=== PATIENT | female | born 1955 | race Caucasian/White ===

== ENCOUNTER 2020-02-25 05:52 | Day surgery (SDC) | payer OTHER ==
[~2020-02-25] VITALS: Ht 167.6 cm; Wt 96.3 kg
[~2020-02-25 05:52] MED LIST: AMLO10 PO; AMLO5 PO; ASPI325 PO; Aspir 8181 MG PO; B Complete1 EACH PO; B-12500 MCG PO; CLOP75 PO; COQ1050 MG PO; Diovan Hct 1601 EACH PO; ERGO400 PO; EZET10 PO; Estroven Regu400 MCG PO; HYDACE5325 PO; LIVALO4 MG PO; LOSA50 PO; METO25ER PO; MULVITMINA PO; NEOPOLHCSU RIGHTEAR; NITR.4SL SL; Vitamin D2000 UNIT PO
--- NOTE | 2020-02-25 07:45 | NUR ---
PT BACK TO RECOVERY ROOM VIA [facility] POST PROCEDURE. EKG DONE PER ORDERS PT HAD EPISODE OF CHEST PAIN FOLLOWING PROCEDURE. AIR BRUSH OPERATOR HAS GIVEN NITRO SL PER ORDERS, PT NOW DENIES ANY CHEST PAIN. NORMAL SINUS RHYTHM ON THE EKG. PT TO BE TRANSFERED PER DR MARVIN FOR MULTIPLE VESSEL CAD.
--- NOTE | 2020-02-25 09:32 | NUR ---
PER DR MARVIN, DR SUN [facility] ACCEPTED PT FOR TRANSFER. COPIES OF PT FACE SHEET AND NEGATIVE COVID TEST RESULTS FAXED TO [employer] OPERATOR AT [facility].
--- NOTE | 2020-02-25 09:45 | NUR ---
ATTEMPTED TO TAKE 2-3 CC AIR OUT OF TR BAND, IMMEDIATE PULSATILE BLEEDING NOTED. 3CC AIR PUT BACK INTO BAND, CONTINUES TO BLEED. ADDITIONAL 2CC AIR PUT INTO BAND TO MAINTAIN HEMOSTASIS. DAUGHTER AT BEDSIDE, CALL LIGHT IN REACH.
--- NOTE | 2020-02-25 11:09 | NUR ---
TR BAND HAS BEEN FULLY DEFLATED. NO BLEEDING OR SWELLING NOTED. WILL CONTINUE TO WATCH FOR BLEEDING. HEPARIN DRIP PER PHAMARCY WILL BE STARTED ONE HOUR POST TR BAND BEING DEFLATED. PT DENIES DISCOMFORT. DAUGHTER REMAINS AT BEDSIDE. VSS, CALL LIGHT IN REACH.
--- NOTE | 2020-02-25 12:05 | NUR ---
PT OUT TO AMBULANCE VIA [facility]UR[facility] BY [facility]. DENIES CHEST PAIN OR DISCOMFORT AT TIME OF TRANSFER. REPORT HAS BEEN CALLED TO COURTNEY RAMIREZ, WHO WILL BE TAKING CARE OF PATIENT UPON ARRIVAL. VSS, HEPARIN DRIP CONTINUES TO INFUSE DURING TRANSPORT.
== END 2020-02-25 12:00 | disposition short-term general hospital (02) ==
LOC: MHTC 05:52
PROC: 4A023N7 Measurement of Cardiac Sampling and Pressure, Left Heart, Percutaneous Approach (ICD-10-PCS; principal; 2020-02-25)
PROC: B201YZZ Plain Radiography of Multiple Coronary Arteries using Other Contrast (ICD-10-PCS; principal; 2020-02-25)
DX: I25.119 Atherosclerotic heart disease of native coronary artery with unspecified angina pectoris (principal); E11.9 Type 2 diabetes mellitus without complications; I11.0 Hypertensive heart disease with heart failure; I50.9 Heart failure, unspecified; E78.5 Hyperlipidemia, unspecified; I08.1 Rheumatic disorders of both mitral and tricuspid valves; M19.90 Unspecified osteoarthritis, unspecified site; I65.23 Occlusion and stenosis of bilateral carotid arteries; Z87.891 Personal history of nicotine dependence; Z88.8 Allergy status to other drugs, medicaments and biological substances; Z79.899 Other long term (current) drug therapy; Z79.82 Long term (current) use of aspirin
CPT/HCPCS: 76937; 93005; 93010; 93458; 99152; C1769; C1894; J1644; J2250; J3010; J7030; J7050; Q9967

== ENCOUNTER → 2020-03-25 | Outpatient (CLI) | payer OTHER ==
[~2020-03-25] MED LIST changes: +EZETIMIBE10 M3 PO; +KEFLEX500 MG PO; +METFORMIN HCL500 M2 PO; +OXYC5; +PLAVIX75 MG PO; +XANAX0.25 MG PO
== END | disposition home or self-care (01) ==
LOC: LAB SHORT 16:00 → LAB 16:00
DX: R31.9 Hematuria, unspecified (principal)
CPT/HCPCS: 87086

== ENCOUNTER 2020-03-26 04:54 | Emergency (ER) | payer OTHER ==
[~2020-03-26] VITALS: Ht 170.2 cm; Wt 89.8 kg
[~2020-03-26 04:54] MED LIST changes: -EZETIMIBE10 M3 PO; -KEFLEX500 MG PO; -METFORMIN HCL500 M2 PO; -OXYC5; -PLAVIX75 MG PO; -XANAX0.25 MG PO
[2020-03-26] MEDS ORDERED: KEFLEX500 MG PO (05:10)
[2020-03-26] MEDS ORDERED: OXYC5 (05:11)
[2020-03-26] MEDS ORDERED: EZETIMIBE10 M3 PO (05:11)
[2020-03-26] MEDS ORDERED: METFORMIN HCL500 M2 PO (05:11)
[2020-03-26] MEDS ORDERED: XANAX0.25 MG PO (05:12)
[2020-03-26] MEDS ORDERED: PLAVIX75 MG PO (05:13)
[2020-03-26 06:01] LABS: BASOPHILS ABSOLUTE AUTO 0.09 K/mm3 (0.00-0.23); BASOPHILS PERCENT AUTO 1 % (0-2); EOSINOPHILS ABSOLUTE AUTO 0.02 K/mm3 (0.00-0.68); EOSINOPHILS PERCENT AUTO 0 % (0-6); Hematocrit 34.5 % (33.0-51.0); IMMATURE GRAN ABSOLUTE AUTO 0.07 K/mm3 (0.00-0.10); IMMATURE GRAN PERCENT AUTO 0 % (0-1); LYMPHOCYTES ABSOLUTE AUTO 1.44 K/mm3 (0.84-5.20); LYMPHOCYTES PERCENT AUTO 9 % (21-46); MONOCYTES PERCENT AUTO 3 % (4-13); Mean Corpuscular HGB 32.2 pg (26.0-34.0); Mean Corpuscular HGB Conc 31.9 g/dL (31.5-36.5); Mean Corpuscular Volume 101 fL (80-100); NEUTROPHILS PERCENT AUTO 87 % (41-73); RDW Coefficient Variation 14.4 % (11.7-14.2); RDW Standard Deviation 52.8 fL (35.1-46.3); Red Blood Cell Count 3.42 M/mm3 (3.80-5.20); White Blood Cell Count 15.62 K/mm3 (4.00-11.30)
[2020-03-26 06:08] LABS: Prothrombin Time Results 10.7 Sec (9.7-11.5)
[2020-03-26 06:10] LABS: Mean Platelet Volume 9.1 fL (9.1-12.4); Platelet Count 518 K/mm3 (150-400)
[2020-03-26 06:17] LABS: Alanine Aminotransfer (ALT/SGP 32 U/L (12-78); Albumin/Globulin Ratio 0.9 (0.8-1.8); Alk Phos 108 U/L (50-136); Anion Gap 9 mmol/L (6-16); Aspartate Aminotrans (AST/SGOT 15 U/L (12-37); Bilirubin, Total 0.4 mg/dL (0.1-1.0); Blood Urea Nitrogen 20 mg/dL (8-24); Bun/Creatinine Ratio 22.2 (12.0-20.0); CO2, Blood 20 mmol/L (21-32); Calcium, Blood 9.9 mg/dL (8.5-10.1); Chloride, Blood 110 mmol/L (98-108); Globulin, Blood 4.6 g/dL (2.2-4.0); Glomerular Filtration Rate >60 (60-); Glucose, Blood 164 mg/dL (70-99); Potassium, Blood 4.1 mmol/L (3.5-5.5); Sodium, Blood 139 mmol/L (136-145); Total Protein, Blood 8.6 g/dL (6.4-8.2)
[2020-03-26 06:32] LABS: Source, Urine Clean Catch
[2020-03-26 06:39] LABS: Appearance, Urine Turbid (Clear); Bilirubin, Urine Neg (Neg); Blood, Urine 5+ (Neg); Color, Urine Brown (P-Yellow); Glucose Qualitative, Urine Neg (Neg); Ketones, Urine 3+ (Neg); Leukocyte Esterase, Urine 2+ (Neg); Nitrite, Urine Neg (Neg); Protein, Urine 3+ (Neg); Specific Gravity, Urine 1.025 (1.003-1.022); Urobilinogen, Urine NORM (Normal); pH, Urine 6.5 (5.0-8.0)
[2020-03-26 06:45] LABS: Bacteria Many /hpf; Red Blood Cells, Urine TNTC /hpf (0-2); Squamous Epithelial Cells Not Seen /hpf (Few); Yeast/Fungi Urine Many /hpf
== END 2020-03-26 08:20 | disposition short-term general hospital (02) ==
LOC: ER 04:54
PROVIDERS: Emergency Medicine
DX: N13.6 Pyonephrosis (principal); Z20.828 Contact with and (suspected) exposure to other viral communicable diseases
CPT/HCPCS: 36415; 74176; 80053; 81001; 83605; 85025; 85610; 87086; 93005; 93010; 96374; 96375; 99285-25; J0696; J0780; J1200; J2270; J2405; J3010; U0003

== ENCOUNTER 2023-03-21 11:40 | Inpatient (IN) | payer OTHER ==
[~2023-03-21] VITALS: Ht 170.2 cm; Wt 92.2 kg
[~2023-03-21 11:40] MED LIST changes: +EZETIMIBE10 M3 PO; +KEFLEX500 MG PO; +METFORMIN HCL500 M2 PO; +OXYC5; +PLAVIX75 MG PO; +XANAX0.25 MG PO
[2023-03-21 12:16] LABS: Hematocrit 38.6 % (33.0-51.0); Hemoglobin 13.1 g/dL (11.5-16.0); Mean Corpuscular HGB 32.5 pg (26.0-34.0); Mean Corpuscular HGB Conc 33.9 g/dL (31.5-36.5); Mean Corpuscular Volume 96 fL (80-100); Mean Platelet Volume 9.3 fL (9.1-12.4); Platelet Count 348 K/mm3 (150-400); RDW Coefficient Variation 12.3 % (11.7-14.2); RDW Standard Deviation 42.7 fL (35.1-46.3); Red Blood Cell Count 4.03 M/mm3 (3.80-5.20)
[2023-03-21 12:35] LABS: Source, Urine Clean Catch
[2023-03-21 12:35] LABS: BAND PERCENT MAN 9 % (0-8); BASOPHILS PERCENT MAN 0 % (0-2); EOSINOPHILS PERCENT MAN 0 % (0-6); LYMPHOCYTES ABSOLUTE MAN 0.75 K/mm3 (0.84-5.20); LYMPHOCYTES PERCENT MAN 3 % (21-46); MONOCYTES ABSOLUTE MAN 0.75 K/mm3 (0.16-1.47); MONOCYTES PERCENT MAN 3 % (4-13); NEUTROPHILS ABSOLUTE MAN 23.68 K/mm3 (1.96-9.15); SEG NEUTROPHILS PERCENT MAN 85 % (41-73); TOTAL CELLS COUNTED 100
[2023-03-21 12:39] LABS: Albumin, Blood 4.1 g/dL (3.4-5.0); Bilirubin, Total 0.7 mg/dL (0.1-1.0); Calcium, Blood 9.8 mg/dL (8.5-10.1); Creatinine, Blood 1.26 mg/dL (0.40-1.00); Globulin, Blood 4.2 g/dL (2.2-4.0); Total Protein, Blood 8.3 g/dL (6.4-8.2)
[2023-03-21 12:42] LABS: Appearance, Urine Cloudy (Clear); Bilirubin, Urine Neg (Neg); Blood, Urine 5+ (Neg); Color, Urine Yellow (P-Yellow); Glucose Qualitative, Urine Neg (Neg); Ketones, Urine 2+ (Neg); Leukocyte Esterase, Urine 3+ (Neg); Nitrite, Urine Neg (Neg); Protein, Urine 2+ (Neg); Specific Gravity, Urine 1.015 (1.003-1.022); Urobilinogen, Urine NORM (Normal)
[2023-03-21 12:51] LABS: Red Blood Cells, Urine 25-50 /hpf (0-2); White Blood Cells, Urine 50-100 /hpf (0-5)
[2023-03-21 12:52] LABS: Bacteria Many /hpf; Mucus Light (0-Heavy); Squamous Epithelial Cells Rare /hpf (Few)
[2023-03-21 12:54] LABS: Renal Epithelial Rare /hpf (0-Rare)
[2023-03-21 21:41] LABS: Base Excess Venous -6.7 mmol/L; PCO2 Venous 31.6 mmHg (38-42); pH Blood Venous 7.38 (7.34-7.37)
[2023-03-21 22:28] VITALS: BP 141/63
[2023-03-21] MEDS ORDERED: NORVASC10 MG PO (22:36)
[2023-03-21] MEDS ORDERED: LOSA25 PO (22:37)
[2023-03-21 23:29] VITALS: BP 147/70
[2023-03-22 03:49] VITALS: BP 128/66
--- NOTE | 2023-03-22 04:06 | NUR ---
SHIFT SUMMARY PT IS A NEW ADMIT THIS SHIFT FOR NEPHROLITHIASIS, HYDRONEPHROSIS, AND A UTI. SHE IS SBA IN THE ROOM, AND A&OX4. SHE HAS LR RUNNING AT 150ML/HR AND HAS RECEIVED 1 L BOLUS IN PCU. SHE IS HAVING MILD BILATERAL FLANK PAIN 2-3/10 WHEN RESTING BUT IT GOES UP TO 5/10 WITH ACTIVITY. THE PT HAS REFUSED PAIN MEDICATIONS SO FAR, BUT SHE HAS RECEIVED ZOFRAN AND REGLAN DUE TO HER NAUSEA. SHE WAS GOING TO [place] TO [facility] BUT THE SECURITY ATTENDANT THERE BELIEVED SHE WOULD PASS THE STONE TONIGHT. DR. HILL HAS BEEN CONSULTED. WE HAVE BEEN FILTERING HER URINE AND HAVE COLLECTED VERY SMALL FRAGMENTS OF STONES. THEY ARE IN A SAMPLE CONTAINER FOR THE DR Bland TO SEE IN THE AM. THE PT WAS SATURATING 85-91% ON ROOM AIR SO I PLACED HER ON 2L NC. SHE GETS SOB WITH ACTIVITY. THE PT DID STATE THAT WITHIN THE LAST FEW WEEKS SHE HAD A NEW DIAGNOSIS OF LLL PARALYSIS. I TALKED TO MY CHARGE NURSE AND WILL PASS OFF THAT THE PT MAY NEED A HOME O2 EVALUATION. THE PT IS VERY PLEASANT AND CALLS APPROPRIATELY. FIRE IGNITION RISK AND SAFETY HAS BEEN ASSESSED. EDUCATION PROVIDED. SEE NOTES FOR ANY UPDATES.
[2023-03-22 04:16] LABS: BASOPHILS PERCENT AUTO 0 % (0-2); EOSINOPHILS PERCENT AUTO 0 % (0-6); Hematocrit 30.9 % (33.0-51.0); Hemoglobin 10.5 g/dL (11.5-16.0); IMMATURE GRAN ABSOLUTE AUTO 0.86 K/mm3 (0.00-0.10); IMMATURE GRAN PERCENT AUTO 2 % (0-1); LYMPHOCYTES ABSOLUTE AUTO 1.48 K/mm3 (0.84-5.20); LYMPHOCYTES PERCENT AUTO 4 % (21-46); MONOCYTES ABSOLUTE AUTO 1.72 K/mm3 (0.16-1.47); MONOCYTES PERCENT AUTO 5 % (4-13); Mean Corpuscular HGB 33.2 pg (26.0-34.0); Mean Corpuscular Volume 98 fL (80-100); Mean Platelet Volume 9.4 fL (9.1-12.4); NEUTROPHILS ABSOLUTE AUTO 31.89 K/mm3 (1.96-9.15); NEUTROPHILS PERCENT AUTO 88 % (41-73); Platelet Count 274 K/mm3 (150-400); RDW Coefficient Variation 13.1 % (11.7-14.2); RDW Standard Deviation 46.5 fL (35.1-46.3); Red Blood Cell Count 3.16 M/mm3 (3.80-5.20); White Blood Cell Count 36.05 K/mm3 (4.00-11.30)
--- NOTE | 2023-03-22 04:36 | NUR ---
UPDATE ASSUMING CARE OF PT AT THIS TIME
[2023-03-22 04:47] LABS: Albumin/Globulin Ratio 0.8 (0.8-1.8); Bilirubin, Total 0.4 mg/dL (0.1-1.0); Calcium, Blood 9.2 mg/dL (8.5-10.1); Creatinine, Blood 1.3 mg/dL (0.40-1.00); Globulin, Blood 3.6 g/dL (2.2-4.0); Magnesium, Blood 1.7 mg/dL (1.6-2.4); Potassium, Blood 4.2 mmol/L (3.5-5.5); Total Protein, Blood 6.6 g/dL (6.4-8.2)
--- NOTE | 2023-03-22 06:31 | NUR ---
SHIFT SUMMARY/ASSUMPTION OF CARE PT ALERT AND ORIENTED X 4. HR STABLE. BP STABLE. OXYGEN SATURATION MAINTAINED ABOVE 92% ON 3 L VIA NC. NO CP OR PRESSURE REPORTED. PT MEDICATED FOR NAUSEA AND PAIN, SEE EMAR. URINE STRAINED FOR STONES, SPECIMEN CUP AT BEDSIDE FOR STONES. PT CURRENLTY SLEEPING. CALL LIGHT WITHIN REACH.
--- NOTE | 2023-03-22 06:44 | NUR ---
THIS RN AGREES WITH PREVIOUS PRINT JOURNALIST
[2023-03-22 07:21] VITALS: BP 145/73
--- NOTE | 2023-03-22 07:50 | NUR ---
UPDATE PT REQUESTING TO HOLD OFF ON FOOD AND PO PILLS AT THIS TIME D/T NAUSEA. PRIMARY RN NOTIFIED.
[2023-03-22 11:12] VITALS: BP 135/71
[2023-03-22 14:44] VITALS: BP 139/66
--- NOTE | 2023-03-22 16:36 | NUR ---
SHIFT SUMMARY: PT ALERT AND ORIENTED X4, ABLE TO FOLLOW COMMANDS AND MAKE NEEDS KNOWN. STRENGTH EQUAL BILATERALLY. BP STABLE, HR SR 80'S, AFEBRILE, SPO2 >96% ON 2L NC, RA AT BASELINE. PT WITH MUTIPLE VOIDS THROUGHOUT THE DAY, NO KIDNEY STONE OBSERVED IN STRAINER. PT WITH 8/10 R. FLANK PAIN THROUGHOUT THE DAY. NEW PAIN MEDICATION ORDERS RECEIVED, SEE EMAR. CBG 125-170 THIS SHIFT, INSULIN HELD DUE TO POOR PO INTAKE. PT IND TO AND FORM BSC. DAUGHTERS AT BEDSIDE THROUGHOUT THE DAY, UPDATED ON PT PLAN OF CARE THROUGHOUT THE DAY WITH PT PERMISSION. PT MEDICATED FOR PAIN APPROX 20 MIN AGO, RESPONDING WELL. NS GTT AT 125ML/HR IN R. AC. FAMILY AT BEDSIDE. BED IN LOW, CALL LIGHT IN REACH, WILL REPORT TO ONCOMING RN.
[2023-03-22 20:11] VITALS: BP 156/71
[2023-03-22 23:22] VITALS: BP 142/71
[2023-03-23 04:29] VITALS: BP 152/78
--- NOTE | 2023-03-23 05:11 | NUR ---
SHIFT SUMMARY PT IS A&OX4, CALLS APPROPRAITELY, SR60'S-90'S ON TELE, AND HAS NO ACUTE EVENTS. PT DID HAVE SOME NAUSEA AND PAIN ONCE THIS SHIFT AND WAS GIVEN DUILADID 1MG AND HER COMPAZINE. SHE HAS RESTED MOST OF THE NIGHT. HER OXYGEN NEEDS HAVE GONE UP TO 4L NC FROM 2L NC. I HAVE TALKED TO THE PT ABOUT GETTING EVALUATED FOR HOME O2. I WILL PASS THIS ON TO THE DAY SHIFT TO TO DISCUSS WITH THE HOSP TEAM. HER URINE HAS BEEN FILTERED ALL SHIFT AND SHE HAS NOT PASSED ANY STONES. FIRE IGNITION RISK HAS BEEN ASSESSED.
[2023-03-23 07:30] VITALS: BP 146/87
--- NOTE | 2023-03-23 07:30 | NUR ---
INITIAL ASSESSMENT: Patient is resting comfortably with her eyes closed, easily awakens with verbal stimuli. She is alert and oriented x4. She reports 3/10 lower back pain that has been present since admission, patient does not want any medications for pain at this time. HRR, she is SR with PACs in the 70s-80s. LS dim in the lower lobes bilat, and clear otherwise. Patient states she has been having some shortness of breath that has been worked up, she recently had a chest CT at the beginning of this month. Some chronic atelectasis in her left lower lobe, pt is on 4l of oxygen and is not on any at home, saturations are low 90s. Patient has has dry NPC. BT+, pt states she has been having chronic nausea and hasn't had much of an appetite. She has been using the C IND and notifying staff when she voids, we are straining all urine-no stones noted at this time. PPP. VSS. Patient denies other needs at this time. Call light in reach.
[2023-03-23] MEDS ORDERED: LOSA50 PO (09:09)
[2023-03-23 09:25] LABS: Hematocrit 29.1 % (33.0-51.0); Hemoglobin 9.5 g/dL (11.5-16.0); Mean Corpuscular HGB 32.5 pg (26.0-34.0); Mean Corpuscular HGB Conc 32.6 g/dL (31.5-36.5); Mean Corpuscular Volume 100 fL (80-100); Mean Platelet Volume 9.8 fL (9.1-12.4); Platelet Count 239 K/mm3 (150-400); RDW Coefficient Variation 13.1 % (11.7-14.2); RDW Standard Deviation 48.1 fL (35.1-46.3); Red Blood Cell Count 2.92 M/mm3 (3.80-5.20); White Blood Cell Count 25.76 K/mm3 (4.00-11.30)
[2023-03-23 09:48] LABS: Albumin, Blood 2.4 g/dL (3.4-5.0); Anion Gap 5 mmol/L (6-16); Blood Urea Nitrogen 19 mg/dL (8-24); Bun/Creatinine Ratio 21.8 (12.0-20.0); CO2, Blood 24 mmol/L (21-32); Calcium, Blood 8.9 mg/dL (8.5-10.1); Chloride, Blood 109 mmol/L (98-108); Creatinine, Blood 0.87 mg/dL (0.40-1.00); Glomerular Filtration Rate 72 (60-); Glucose, Blood 182 mg/dL (70-99); Phosphorus, Blood 2.2 mg/dL (2.5-4.9); Potassium, Blood 4.2 mmol/L (3.5-5.5); Sodium, Blood 138 mmol/L (136-145)
[2023-03-23 09:52] LABS: BAND PERCENT MAN 8 % (0-8); BASOPHILS PERCENT MAN 0 % (0-2); EOSINOPHILS PERCENT MAN 0 % (0-6); LYMPHOCYTES ABSOLUTE MAN 0.51 K/mm3 (0.84-5.20); LYMPHOCYTES PERCENT MAN 2 % (21-46); MONOCYTES ABSOLUTE MAN 0.25 K/mm3 (0.16-1.47); MONOCYTES PERCENT MAN 1 % (4-13); NEUTROPHILS ABSOLUTE MAN 24.98 K/mm3 (1.96-9.15); SEG NEUTROPHILS PERCENT MAN 89 % (41-73); TOTAL CELLS COUNTED 100
--- NOTE | 2023-03-23 12:00 | NUR ---
Update: Patient has been resting comfortably. Blood pressure is a little high, she is not on all of her home medications-MD notified, see new orders. Dr. Guadalupe mentioned that if the staff doesn't see the stone pass over night we may do repeat imaging to see if it is still present on CT. Patient denies other needs at this time. Call light in reach. Daughters at bedside.
[2023-03-23 12:15] VITALS: BP 164/83
--- NOTE | 2023-03-23 16:12 | NUR ---
Update: Patient continues to rest, she has been medicated for pain and nausea twice. Still not interested in a lot of PO intake. IVF changed to LR. AFter giving patients home dose of Amlodipine her blood pressure is improved from 160s mm hg down to 130s. New IV placed. Patient denies other needs at this time. Call light in reach.
--- NOTE | 2023-03-23 18:08 | NUR ---
SUMMARY: Patient has been alert and oriented T/O the shift. She has been C/O pain intermittently T/O the day, she was given Dilaudid twice. HRR, SR with PACs. She was hypertensive this afternoon, after restarting some of her home medications her blood pressure came down. LS DIM in the lower lobes more the left than the right, she has an IS at bedside and has been using it hourly. BT+, she has had poor PO intake T/O the shift, she was medicated with Compazine twice for nausea. She has been getting up to the bedside commode independently, we are straining urine-no stones noted yet. Plan for possible follow up ABD CT to see if she has passed the stones yet. No other acute changes this shift, will report to oncoming RN.
[2023-03-23 19:14] VITALS: BP 161/83
[2023-03-23 23:24] VITALS: BP 148/73
[2023-03-24 03:35] VITALS: BP 154/74
[2023-03-24 03:41] LABS: Hematocrit 31.8 % (33.0-51.0); Hemoglobin 10.6 g/dL (11.5-16.0); Mean Corpuscular HGB Conc 33.3 g/dL (31.5-36.5); Mean Corpuscular Volume 99 fL (80-100); Mean Platelet Volume 9.9 fL (9.1-12.4); Platelet Count 266 K/mm3 (150-400); RDW Standard Deviation 47.2 fL (35.1-46.3); Red Blood Cell Count 3.21 M/mm3 (3.80-5.20); White Blood Cell Count 24.92 K/mm3 (4.00-11.30)
[2023-03-24 04:04] LABS: Albumin, Blood 2.7 g/dL (3.4-5.0); Anion Gap 3 mmol/L (6-16); Blood Urea Nitrogen 13 mg/dL (8-24); Bun/Creatinine Ratio 16.1 (12.0-20.0); CO2, Blood 28 mmol/L (21-32); Calcium, Blood 9.2 mg/dL (8.5-10.1); Chloride, Blood 105 mmol/L (98-108); Creatinine, Blood 0.81 mg/dL (0.40-1.00); Glomerular Filtration Rate 79 (60-); Glucose, Blood 152 mg/dL (70-99); Phosphorus, Blood 2.3 mg/dL (2.5-4.9); Potassium, Blood 4.4 mmol/L (3.5-5.5); Sodium, Blood 136 mmol/L (136-145)
[2023-03-24 04:14] LABS: BAND PERCENT MAN 14 % (0-8); BASOPHILS PERCENT MAN 0 % (0-2); EOSINOPHILS ABSOLUTE MAN 0.24 K/mm3 (0.00-0.68); EOSINOPHILS PERCENT MAN 1 % (0-6); LYMPHOCYTES ABSOLUTE MAN 0.99 K/mm3 (0.84-5.20); LYMPHOCYTES PERCENT MAN 4 % (21-46); MONOCYTES ABSOLUTE MAN 0.99 K/mm3 (0.16-1.47); MONOCYTES PERCENT MAN 4 % (4-13); NEUTROPHILS ABSOLUTE MAN 22.67 K/mm3 (1.96-9.15); SEG NEUTROPHILS PERCENT MAN 77 % (41-73); TOTAL CELLS COUNTED 100
--- NOTE | 2023-03-24 04:49 | NUR ---
SHIFT SUMMARY PT IS A&OX4, HAS BEEN IND IN THE ROOM, AND STILL HAS NOT PASSED ANY KIDNEY STONES. THE PT DID DESATURATE TONIGHT AND IS NOW ON 8L NC TO MAINTAIN SP02 >90%. SHE STATES THAT SHE IS SICK OF FEELING MISERABLE. SHE HAS HAD TO BE MEDICATED A FEW TIMES FOR NAUSEA AND PAIN. NO ACUTE EVENTS OVER NIGHT. ON TELE SHE HAS BEEN SR 70'S-90'S. SEE NOTES FOR ANY UPDATES.
[2023-03-24 07:42] VITALS: BP 150/80
--- NOTE | 2023-03-24 07:45 | NUR ---
INITIAL ASSESSMENT: Patient is resting in bed supine, resting with her eyes closed, she easily awakens with verbali stimuli. She is oriented x4. She reports minimal pain she rates at a 3/10, she states the pain has been in her right flank. HRR, SR in the 70s. She has some increased edema to BUE and BLE. LS DIM in the bases with some crackles noted, she is now on 8L instead of the 4L she was on yesterday, saturations in the mid 90s. She continues to have a dry NPC. Patient has IS at bedside, encouraged to use Q1. We also discussed her movign around today and not staying in bed. BT+, pt states she hasn't had a BM for a couple of days, but she also is not taking in alot of PO. PPP. VSS. Dr. Guadalupe at bedside, see new orders.
[2023-03-24 12:08] VITALS: BP 168/84
--- NOTE | 2023-03-24 13:00 | NUR ---
UPDATE: Patients pain level is back up to 6/10, Fentanyl given, pt continues to have 6/10 pain in her right flank. Dr. Guadalupe notified-see new orders. Repeat ABD CT done.
[2023-03-24 15:19] VITALS: BP 145/78
--- NOTE | 2023-03-24 18:56 | NUR ---
Summary: Patient has been alert and oriented T/O the shift. She has been C/O right flank pain intermittently T/O the shift. Her pain medications have been transitioned to oral. HRR, SR 70s-80s. Increased edma, one time dose of lasix given. LS DIM with crackles in the bases. Initially the patient was on 8l of oxygen via NC, I was able to gradually decrease it down to 2L via NC. BT+, pt still has been having intermittent nausea and was medicated with Compazine a couple of times. Pt has had poor PO intake and has not had a BM in a couple of days. VSS T/O the shift. Repeat ABD CT, stones have been passed. No acute changes this shift. Will report to oncoming RN.
[2023-03-24 20:14] VITALS: BP 125/71
[2023-03-25 00:19] VITALS: BP 151/81
[2023-03-25 04:31] VITALS: BP 155/86
[2023-03-25 04:33] LABS: BASOPHILS ABSOLUTE AUTO 0.12 K/mm3 (0.00-0.23); BASOPHILS PERCENT AUTO 1 % (0-2); EOSINOPHILS ABSOLUTE AUTO 0.12 K/mm3 (0.00-0.68); EOSINOPHILS PERCENT AUTO 1 % (0-6); Hematocrit 31.6 % (33.0-51.0); Hemoglobin 11.3 g/dL (11.5-16.0); IMMATURE GRAN ABSOLUTE AUTO 0.64 K/mm3 (0.00-0.10); IMMATURE GRAN PERCENT AUTO 3 % (0-1); LYMPHOCYTES ABSOLUTE AUTO 2.57 K/mm3 (0.84-5.20); LYMPHOCYTES PERCENT AUTO 13 % (21-46); MONOCYTES ABSOLUTE AUTO 1.63 K/mm3 (0.16-1.47); MONOCYTES PERCENT AUTO 8 % (4-13); Mean Corpuscular HGB 33.6 pg (26.0-34.0); Mean Corpuscular HGB Conc 35.8 g/dL (31.5-36.5); NEUTROPHILS ABSOLUTE AUTO 14.36 K/mm3 (1.96-9.15); NEUTROPHILS PERCENT AUTO 74 % (41-73); NRBC ABSOLUTE 0.02 K/mm3 (0.00-0.02); NRBC Auto 0.1 /100 WBC (0.0-0.2); RDW Coefficient Variation 12.9 % (11.7-14.2); RDW Standard Deviation 44.2 fL (35.1-46.3); Red Blood Cell Count 3.36 M/mm3 (3.80-5.20); White Blood Cell Count 19.44 K/mm3 (4.00-11.30)
[2023-03-25 04:35] LABS: Mean Corpuscular Volume 94 fL (80-100); Mean Platelet Volume 10.8 fL (9.1-12.4); Platelet Count 336 K/mm3 (150-400)
[2023-03-25 04:45] LABS: BAND PERCENT MAN 9 % (0-8); BASOPHILS PERCENT MAN 0 % (0-2); EOSINOPHILS PERCENT MAN 0 % (0-6); LYMPHOCYTES % ATYPICAL MANUAL 1 % (0-0); LYMPHOCYTES PERCENT MAN 16 % (21-46); MONOCYTES ABSOLUTE MAN 1.74 K/mm3 (0.16-1.47); MONOCYTES PERCENT MAN 9 % (4-13); NEUTROPHILS ABSOLUTE MAN 14.38 K/mm3 (1.96-9.15); SEG NEUTROPHILS PERCENT MAN 65 % (41-73); TOTAL CELLS COUNTED 100
[2023-03-25 04:46] LABS: Albumin, Blood 2.7 g/dL (3.4-5.0); Anion Gap 5 mmol/L (6-16); Blood Urea Nitrogen 15 mg/dL (8-24); Bun/Creatinine Ratio 19.5 (12.0-20.0); CO2, Blood 29 mmol/L (21-32); Calcium, Blood 9.4 mg/dL (8.5-10.1); Chloride, Blood 101 mmol/L (98-108); Creatinine, Blood 0.77 mg/dL (0.40-1.00); Glomerular Filtration Rate 83 (60-); Glucose, Blood 157 mg/dL (70-99); Phosphorus, Blood 2.5 mg/dL (2.5-4.9); Potassium, Blood 3.8 mmol/L (3.5-5.5); Sodium, Blood 135 mmol/L (136-145)
--- NOTE | 2023-03-25 05:24 | NUR ---
SHIFT SUMMARY A/Ox4 AND COOPERATIVE WITH CARE. ANSWERS QUESTIONS APPROPRIATELY AND ABLE TO MAKE HER NEEDS KNOWN, BUT CAN BE ANXIOUS AT TIMES. NO ACUTE EVENTS OVER NIGHT. CARDIAC, REMAINS IN SR 80-90's WITH NO COMPLAINTS OF CP OR PRESSURE T/O THE NIGHT. SBP HAS BEEN STABLE RANGING 120 S-150's. RESPIRATORY, MAINTAINS SPO2 >90% ON 2L VIA NC. DENIES SOB AT REST UNLESS FEELING ANXIOUS. TACYPNEA NOTED WITH MODERATE EXERTION, BUT RECOVERS WELL. GI/, ABLE TO INDEPENDENTLY AMBULATE TO [facility] TO VOID YELLOW URINE. CONTINUES TO REPORT SOME RIGHT FLANK SORENESS, BUT PAIN HAS BEEN WELL CONTROLLED WITH PRN PAIN MEDICATIONS. DENIES N/V T/O THE NIGHT. CONTINUES TO HAVE REDUCED PO INTAKE, BUT PT DRANK SEVERAL ENSURES DURING THE NIGHT. PT RECEIVED SHOWER THIS AM PER HER REQUEST. ENCOURAGED INCENTIVE SPIROMETER USE WHENEVER AWAKE. ASSESSED PT FOR RISKS OF ANY IGNITION SOURCES WELL BEHAVIORS FOR INCREASED RISKS OF FIRE DANGER. PT EDUCATED ON COMMON SOURCES OF IGNITION WELL NEED TO KEEP A SAFE ENVIRONMENT. PT VOICED UNDERSTANDING. NO NEW ORDERS AT THIS TIME, WILL REPORT TO ONCOMING RN. ALBA DWYER OF THIS NOTE.
[2023-03-25 07:28] VITALS: BP 171/79
--- NOTE | 2023-03-25 08:02 | NUR ---
AM NOTE ASSUMED CARE OF PATIENT AT [facility] 0700. PT ALERT, ORINETED X4. IND IN ROOM. PT REPORTS LOWER BACK PAIN, MEDICATED PER EMAR. SPO2 >90% ON 2L O2 VIA NC. TELE SINUS 70-80'S, BP ELEVATED, MEDICATED WITH SCHEDULE AMLODIPINE. ABD SOFT NONTENDER, NORMOACTIVE BT, REPORTING NAUSEA, MEDICATED WITH PRN. EDEMA NOTED TO BLE 1+, TRACE NOTED TO BUE. OTHER VSS. NO OTHER ACUTE CHANGES NOTED. WILL CONTINUE TO MONITOR. NEW ORDERS FOR NO TELE AND LIDO PATCH PRN DAILY.
[2023-03-25 15:17] VITALS: BP 173/72
[2023-03-25 16:40] VITALS: BP 157/83
--- NOTE | 2023-03-25 16:54 | NUR ---
ASSUMED CARE NOTE RECEIVED REPORT FROM MARLENE IN PCU. ASSUMED CARE OF PT. TOA TO ROOM FROM PCU AT 1630 VIA W/C BY GAYATRI. PT A&OX4, BP ELEVATED, IMPROVED FROM BP TAKEN IN PCU PRIOR TO ARRIVING ON THE FLOOR, NO HYDRALAZINE NEEDED, PT ASYMPTOMATIC, HX OF HTN. OTHERWISE VSS. PAIN MANAGED PRIOR TO ARRIVAL, BREAKTHROUGH PAIN EXPERIENCED SHORTLY AFTER ARRIVAL AND MEDICATED W/ FENTANYL PER EMAR. PT AMB INDEPENDENTLY W/ SBA. I AGREE W/ LAST ASSESSMENT.
--- NOTE | 2023-03-25 16:56 | NUR ---
Transfer note Pt continues to report nausea, medicated per emar. Continued to report back pain, medicdated per emar. Encouraged pt t/o shift to use i/s. Elevated bp note this afternoon, pt reports nausea and pain, medicated, had planned to recheck but pt transfered to new room. Report given to RN assuming care of patient. Pt transfered at approx 1630.
[2023-03-25 19:48] VITALS: BP 106/69
[2023-03-26] VITALS (11 sets, daily range): BP systolic 100–131; BP diastolic 59–80
--- NOTE | 2023-03-26 06:39 | NUR ---
SHIFT SUMMARY PT HAD PAIN REQUIRING FREQUENT PRN MEDICATIONS. PRN LIDOCAINE PATCH APPLIED TO LOWER RIGHT ABODMEN/SIDE. PT LATER REQUESTED SHE HAVE A LIDOCAINE PATCH FOR HER RIGHT SHOULDER. CALLED [employer] TO OBTAIN ORDER, ADDITIONAL PATCH APPLIED. PAIN WAS VERY BAD IN THE BEGINNING OF SHIFT. HAS IMPROVED MORE AFTER GIVING 2 NORCO TABS INSTEAD OF 1. PT ALSO RECEIVED TYLENOL FOR A TEMP. NO OTHER EVENTS OVER NIGHT.
[2023-03-26 06:50] LABS: Hematocrit 34.2 % (33.0-51.0); Hemoglobin 11.6 g/dL (11.5-16.0); Mean Corpuscular HGB 32.4 pg (26.0-34.0); Mean Corpuscular HGB Conc 33.9 g/dL (31.5-36.5); Mean Corpuscular Volume 96 fL (80-100); Mean Platelet Volume 9.7 fL (9.1-12.4); NRBC ABSOLUTE 0.02 K/mm3 (0.00-0.02); NRBC Auto 0.1 /100 WBC (0.0-0.2); Platelet Count 356 K/mm3 (150-400); RDW Coefficient Variation 12.9 % (11.7-14.2); RDW Standard Deviation 45.6 fL (35.1-46.3); Red Blood Cell Count 3.58 M/mm3 (3.80-5.20); White Blood Cell Count 14.15 K/mm3 (4.00-11.30)
[2023-03-26 07:15] LABS: BAND PERCENT MAN 29 % (0-8); BASOPHILS PERCENT MAN 0 % (0-2); EOSINOPHILS PERCENT MAN 0 % (0-6); LYMPHOCYTES ABSOLUTE MAN 1.13 K/mm3 (0.84-5.20); LYMPHOCYTES PERCENT MAN 8 % (21-46); METAMYELOCYTE PERCENT MAN 5 % (0-0); MONOCYTES PERCENT MAN 5 % (4-13); MYELOCYTE ABSOLUTE MAN 0.14 K/mm3 (0.00-0.00); MYELOCYTE PERCENT MAN 1 % (0-0); NEUTROPHILS ABSOLUTE MAN 11.46 K/mm3 (1.96-9.15); SEG NEUTROPHILS PERCENT MAN 52 % (41-73); TOTAL CELLS COUNTED 100
[2023-03-26 07:22] LABS: Albumin, Blood 2.5 g/dL (3.4-5.0); Anion Gap 7 mmol/L (6-16); Blood Urea Nitrogen 24 mg/dL (8-24); Bun/Creatinine Ratio 20.3 (12.0-20.0); CO2, Blood 27 mmol/L (21-32); Calcium, Blood 9.2 mg/dL (8.5-10.1); Chloride, Blood 102 mmol/L (98-108); Creatinine, Blood 1.18 mg/dL (0.40-1.00); Glomerular Filtration Rate 50 (60-); Glucose, Blood 147 mg/dL (70-99); Potassium, Blood 3.8 mmol/L (3.5-5.5); Sodium, Blood 136 mmol/L (136-145)
[2023-03-26 15:30] LABS: Base Excess Venous 4.1 mmol/L; Bicarbonate Venous 27.6 mmol/L (24.0-30.0); PCO2 Venous 41.8 mmHg (38-42); pH Blood Venous 7.44 (7.34-7.37)
--- NOTE | 2023-03-26 18:02 | NUR ---
SHIFT SUMMARY. PATIENT HAD MUCH DIFFICULTY WITH PAIN TODAY. FENTANYL WAS DC'D NOT MANAGING PAIN AND SO WAS TORADOL FOR DECREASED KIDNEY FUNCTION. PATIENT ION HAS NORCO 5/325MG 1-2 TABLETS FOR SEVERE PAIN. SHE IS ALSO NOTED TO BE BREATHING VERY SHALLOW BECUASE SHE SAYS IT HURTS TO TAKE DEEP BREATHS. SHE IS NOTED TO BE CLUTCHING HER RIGHT SIDE AND YELLING OUT WHEN SHE HAS TO MOVE, TURN OR STAND TO USE BEDSIDE COMMODE. HER SATS DROP INTO THE 84-88% RANGE AND LUIS SAYS SHE CANNOT TAKE DEEP BREATHS. IS NOTIFIED AND ORDER TO CALL RT FOR NEB TREATMENTS PRN. PATIENT SEEMS A LITTLE MORE COMFORTABLE WHENO2 SATS INCREASE. HER LUNGS ARE VERY DIM IN THE BASES. INSPIRATORY WHEEZE NOTED TO UPPER LEFT LOBE THAT CLEARS WITH COUGH. SHE HAS NOT EATEN VERY MUCH TODAY EVEN AFTER COMPAZINE WAS PROVIDED FOR NAUSEA. SHE CONTINUES TO RECEIVE IV ABX. SHE IS DRINKING A LOT OF WATER AND EATING ICE CHIPS. WILL CONTINUE TO MONITOR THIS PATIENT CLOSELY FOR ANY WANTS OR NEEDS UNTIL REPORT AND HAND OFF AT SHIFT CHANGE.
[2023-03-26 20:52] LABS: Base Excess Venous 2.2 mmol/L; Bicarbonate Venous 25.7 mmol/L (24.0-30.0); PCO2 Venous 35.7 mmHg (38-42); pH Blood Venous 7.47 (7.34-7.37)
[2023-03-26 22:58] LABS: Hematocrit 34.8 % (33.0-51.0); Hemoglobin 11.5 g/dL (11.5-16.0); Mean Corpuscular Volume 97 fL (80-100); Mean Platelet Volume 10.4 fL (9.1-12.4); NRBC ABSOLUTE 0.09 K/mm3 (0.00-0.02); NRBC Auto 0.3 /100 WBC (0.0-0.2); Platelet Count 419 K/mm3 (150-400); RDW Coefficient Variation 13.2 % (11.7-14.2); RDW Standard Deviation 47.3 fL (35.1-46.3); Red Blood Cell Count 3.59 M/mm3 (3.80-5.20); White Blood Cell Count 31.11 K/mm3 (4.00-11.30)
--- NOTE | 2023-03-26 23:00 | NUR ---
PATIENT ARRIVED TO ICU 16 FROM ROOM 304, A&O BUT LETHARGIC, TRANSFER TO ICU BED USING SLIDER SHEET AND PLACED ON ICU MONITORS. PATIENT PLACED ON AIRVO 60L FIO2 90% BY RT. RESP DECREASED T/O. PREP TO GO TO OR.
[2023-03-26 23:10] LABS: Albumin, Blood 2.5 g/dL (3.4-5.0); Albumin/Globulin Ratio 0.5 (0.8-1.8); Bilirubin, Total 0.8 mg/dL (0.1-1.0); Bun/Creatinine Ratio 21.8 (12.0-20.0); Calcium, Blood 9.2 mg/dL (8.5-10.1); Creatinine, Blood 1.74 mg/dL (0.40-1.00); Globulin, Blood 4.8 g/dL (2.2-4.0); Potassium, Blood 3.9 mmol/L (3.5-5.5); Total Protein, Blood 7.3 g/dL (6.4-8.2)
--- NOTE | 2023-03-26 23:15 | NUR ---
REPORT FROM AIMEE RN- PT LAYING IN BED - RESPIRATIONS INCREASED, PT CURRENTLY ON 7L O2 VIA NC- SATS = 88-90%- PT REPORTS UNABLE TO USE INCENTIVE SPIROMETER D/T PAIN- CALL TO RT FOR BREATHING [place] 1939 CALL TO KAT HIDALGO RE: PT ABD PAIN, SOB - ORDER TO PUT ON AIRVO AND CXR- 1999 KAT HIDALGO IN ROOM, NEW ORDERS FOR VBG, NPO, CT AND DILAUDID FOR PAIN, GAVE DILAUDID FOR 10/10 PAIN- PT TO CT -PT RETURNED FROM CT- DAUGHTERS AND AT BEDSIDE, 2229 ORDER FOR PT TO GO TO ICU- CALL TO ABHINAV IN ICU FOR REPORT 2300 TRANSFERRED PT TO ICU 16
[2023-03-26 23:22] LABS: International Normalized Ratio 1.1; Prothrombin Time Results 11.5 Sec (9.7-11.5)
[2023-03-26 23:40] LABS: BAND PERCENT MAN 14 % (0-8); BASOPHILS PERCENT MAN 0 % (0-2); EOSINOPHILS PERCENT MAN 0 % (0-6); LYMPHOCYTES ABSOLUTE MAN 2.79 K/mm3 (0.84-5.20); LYMPHOCYTES PERCENT MAN 9 % (21-46); METAMYELOCYTE ABSOLUTE MAN 0.93 K/mm3 (0.00-0.00); METAMYELOCYTE PERCENT MAN 3 % (0-0); MONOCYTES ABSOLUTE MAN 0.62 K/mm3 (0.16-1.47); MONOCYTES PERCENT MAN 2 % (4-13); MYELOCYTE ABSOLUTE MAN 0.62 K/mm3 (0.00-0.00); MYELOCYTE PERCENT MAN 2 % (0-0); NEUTROPHILS ABSOLUTE MAN 26.13 K/mm3 (1.96-9.15); SEG NEUTROPHILS PERCENT MAN 70 % (41-73); TOTAL CELLS COUNTED 100
[2023-03-27] VITALS (52 sets, daily range): BP systolic 78–161; BP diastolic 47–77
--- NOTE | 2023-03-27 01:14 | NUR ---
AT 2311 DOCTOR CLARK AND DOCTOR YOON AT BEDSIDE TO TALK WITH PATIENT AND FAMILY REGARDING SURGERY. 2ND IV OBTAINED AND PAZ CATH PLACED. AT 0027 PATIENT TRANSFER TO OR VIA BED WITH AIRVO IN PLACE WITH RT ASSIST. AFTER DOCTOR BARKER SPOKE WITH PATIENT AND FAMILY.
--- NOTE | 2023-03-27 01:40 | NUR ---
03/27/23 0140 Katelynn Goss PT ENTERED OR WITH PAZ CATHETER
[2023-03-27 03:29] LABS: Hematocrit 29.2 % (33.0-51.0); Hemoglobin 9.8 g/dL (11.5-16.0); Mean Corpuscular HGB 32.8 pg (26.0-34.0); Mean Corpuscular HGB Conc 33.6 g/dL (31.5-36.5); Mean Corpuscular Volume 98 fL (80-100); Mean Platelet Volume 10.1 fL (9.1-12.4); NRBC ABSOLUTE 0.06 K/mm3 (0.00-0.02); NRBC Auto 0.2 /100 WBC (0.0-0.2); Platelet Count 329 K/mm3 (150-400); RDW Coefficient Variation 13.3 % (11.7-14.2); RDW Standard Deviation 47.5 fL (35.1-46.3); Red Blood Cell Count 2.99 M/mm3 (3.80-5.20); White Blood Cell Count 32.01 K/mm3 (4.00-11.30)
[2023-03-27 03:50] LABS: Albumin, Blood 1.9 g/dL (3.4-5.0); Anion Gap 8 mmol/L (6-16); Blood Urea Nitrogen 41 mg/dL (8-24); Bun/Creatinine Ratio 22.7 (12.0-20.0); CO2, Blood 24 mmol/L (21-32); Calcium, Blood 8.3 mg/dL (8.5-10.1); Chloride, Blood 102 mmol/L (98-108); Creatinine, Blood 1.81 mg/dL (0.40-1.00); Glomerular Filtration Rate 30 (60-); Glucose, Blood 201 mg/dL (70-99); Phosphorus, Blood 5.9 mg/dL (2.5-4.9); Potassium, Blood 4.1 mmol/L (3.5-5.5); Sodium, Blood 134 mmol/L (136-145)
[2023-03-27 04:19] LABS: BAND PERCENT MAN 8 % (0-8); BASOPHILS PERCENT MAN 0 % (0-2); EOSINOPHILS PERCENT MAN 0 % (0-6); LYMPHOCYTES ABSOLUTE MAN 0.64 K/mm3 (0.84-5.20); LYMPHOCYTES PERCENT MAN 2 % (21-46); METAMYELOCYTE ABSOLUTE MAN 0.32 K/mm3 (0.00-0.00); METAMYELOCYTE PERCENT MAN 1 % (0-0); MONOCYTES ABSOLUTE MAN 0.32 K/mm3 (0.16-1.47); MONOCYTES PERCENT MAN 1 % (4-13); NEUTROPHILS ABSOLUTE MAN 30.72 K/mm3 (1.96-9.15); SEG NEUTROPHILS PERCENT MAN 88 % (41-73); TOTAL CELLS COUNTED 100
[2023-03-27 04:23] LABS: Source, Urine Foley catheter
[2023-03-27 04:33] LABS: Bilirubin, Urine Neg (Neg); Blood, Urine 3+ (Neg); Glucose Qualitative, Urine Neg (Neg); Ketones, Urine Neg (Neg); Leukocyte Esterase, Urine 1+ (Neg); Nitrite, Urine Neg (Neg); Protein, Urine 2+ (Neg); Urobilinogen, Urine NORM (Normal)
--- NOTE | 2023-03-27 04:43 | NUR ---
AT 0303 PATIENT ARRIVED BACK FROM OR WITH ETT IN PLACE AND ON VENT AC/VC 18, TV 400, PEEP 5, FIO2 85% WITH RT ASSIST. DOCTOR BARKER AT BEDSIDE. ABD INCISIONS CD&I WITH NATIVIDAD DRAIN TO RIGHT SIDE OF ABD HOLDING GOOD SUCTION. NG COILED IN MOUTH, NG SLOWLY PULLED BACK UNTIL COIL NO LONGER SEEN IN MOUTH. AFTER ETT SECURED XRAY OBTAINED FOR PLACEMENT, AT 0448 DOCTOR ROLAND ABLE TO READ XRAY AND RECOMMENDING ADVANCE ETT 1.5 CM RT CALLED. ALSO RECOMMENDING TO PULL NG BACK 4 CM, WILL CLARIFY WITH DOCTOR CLARK DUE TO BEING INFORMED THAT THE END OF THE NG WAS IN SPECIFIC PLACEMENT DURING SURGERY.
[2023-03-27 05:17] LABS: Appearance, Urine Cloudy (Clear); Color, Urine Yellow (P-Yellow)
[2023-03-27 05:23] LABS: Bacteria Few /hpf; Red Blood Cells, Urine 0-2 /hpf (0-2); Squamous Epithelial Cells Not Seen /hpf (Few); Uric Acid Crystals Few /hpf
--- NOTE | 2023-03-27 07:00 | NUR ---
ASSUME CARE: I have assumed care of this patient.
--- NOTE | 2023-03-27 10:30 | NUR ---
REPORT: Report given to ASHLEY Bain
--- NOTE | 2023-03-27 12:30 | NUR ---
ASSUME CARE: I have reassumed care of this patient.
--- NOTE | 2023-03-27 12:51 | NUR ---
EXTUBATION: Pt extubated to Airvo 40L/min 60% FiO2
--- NOTE | 2023-03-27 18:11 | NUR ---
SHIFT SUMMARY: Pt extubated this morning to Airvo. NG tube in place to LIS. Pt using mouth swabs for dry mouth due to oxygen requirements. Dr Wyatt called and asked about ice chips. He states pt needs to stay NPO. PRN dilaudid given for abdominal pain. Serjio drain with clear, brown drainage. Incision sites clean and intact without redness or drainage. Minor patent and draining to gravity.
--- NOTE | 2023-03-27 18:59 | NUR ---
RHYTHM CHAGE: HR 190, appears to be SVT. Dr Guadalupe called and notified. See new orders.
[2023-03-27 22:07] LABS: Bun/Creatinine Ratio 24.6 (12.0-20.0); Calcium, Blood 8.5 mg/dL (8.5-10.1); Creatinine, Blood 1.22 mg/dL (0.40-1.00); Magnesium, Blood 1.9 mg/dL (1.6-2.4); Phosphorus, Blood 3.1 mg/dL (2.5-4.9); Potassium, Blood 3.5 mmol/L (3.5-5.5)
[2023-03-28] VITALS (42 sets, daily range): BP systolic 104–178; BP diastolic 58–92
[2023-03-28 04:54] LABS: Hematocrit 30.5 % (33.0-51.0); Hemoglobin 10.1 g/dL (11.5-16.0); Mean Corpuscular HGB 32.8 pg (26.0-34.0); Mean Corpuscular HGB Conc 33.1 g/dL (31.5-36.5); Mean Corpuscular Volume 99 fL (80-100); Mean Platelet Volume 10.1 fL (9.1-12.4); NRBC ABSOLUTE 0.11 K/mm3 (0.00-0.02); NRBC Auto 0.3 /100 WBC (0.0-0.2); Platelet Count 387 K/mm3 (150-400); RDW Coefficient Variation 13.8 % (11.7-14.2); RDW Standard Deviation 50.2 fL (35.1-46.3); Red Blood Cell Count 3.08 M/mm3 (3.80-5.20); White Blood Cell Count 37.16 K/mm3 (4.00-11.30)
[2023-03-28 05:08] LABS: Anion Gap 8 mmol/L (6-16); Blood Urea Nitrogen 28 mg/dL (8-24); Bun/Creatinine Ratio 25.2 (12.0-20.0); CO2, Blood 25 mmol/L (21-32); Calcium, Blood 8.7 mg/dL (8.5-10.1); Chloride, Blood 110 mmol/L (98-108); Creatinine, Blood 1.11 mg/dL (0.40-1.00); Glomerular Filtration Rate 54 (60-); Glucose, Blood 113 mg/dL (70-99); Phosphorus, Blood 2.8 mg/dL (2.5-4.9); Potassium, Blood 3.8 mmol/L (3.5-5.5); Sodium, Blood 143 mmol/L (136-145)
[2023-03-28 05:23] LABS: BAND PERCENT MAN 4 % (0-8); BASOPHILS PERCENT MAN 0 % (0-2); EOSINOPHILS PERCENT MAN 0 % (0-6); LYMPHOCYTES ABSOLUTE MAN 1.11 K/mm3 (0.84-5.20); LYMPHOCYTES PERCENT MAN 3 % (21-46); METAMYELOCYTE ABSOLUTE MAN 1.11 K/mm3 (0.00-0.00); METAMYELOCYTE PERCENT MAN 3 % (0-0); MONOCYTES ABSOLUTE MAN 0.37 K/mm3 (0.16-1.47); MONOCYTES PERCENT MAN 1 % (4-13); NEUTROPHILS ABSOLUTE MAN 34.55 K/mm3 (1.96-9.15); SEG NEUTROPHILS PERCENT MAN 89 % (41-73); TOTAL CELLS COUNTED 100
--- NOTE | 2023-03-28 06:02 | NUR ---
PATIENT AOX4. AT 1999 PT WENT INTO SVT. CONVERTED BACK TO ST AFTER 6MG ADENOSINE AND REMAINED SR/ST FOR THE REST OF THE SHIFT. BP STABLE. HIGH FLOW NASAL CANNULA AT 45L 80%. NPO, NGT TO LIS WITH MINIMAL OUTPUT. NO N/V OR BM. PAZ IN PLACE WITH ADEQUATE URINE OUTPUT. AMANDA DRAIN WITH 80ML OUTPUT OVERNIGHT. NS INFUSING AND FREQUENT DOSES OF PRN DILAUDID GIVEN FOR ABDOMINAL PAIN.
--- NOTE | 2023-03-28 17:35 | NUR ---
SHIFT SUMMARY: Pt up in chair for much of day. She worked with OT. Pain controlled with PRN IV dilaudid. One dose of PRN lorazepam given. No cardiac events this shift. RT began chest physio and IS encouraged. Minor removed and purewick placed. NG continues to LIS with minimal output. RUQ Serjio with 50mls of clear/yellow liquid out. Family at bedside and supportive throughout the day.
--- NOTE | 2023-03-28 19:15 | NUR ---
ASSUMED CARE OF PT AT 1900 PT ANXIOUS DRUING BEDSIDE REPORT. DAUGHTER AT BEDSIDE AT THIS TIME. SBP 150'S. WILL CONTINUE TO MONITOR FOR MEDICATION NEEDS. SPO2 91% WITH AIRVO 45L/55%. RT IN ROOM SHORTLY AFTER SHIFT REPORT GIVEN. PUREWICK IN PLACE. SEE FULL ASSESSMENT FOR FURTHER DETAILS.
[2023-03-29] VITALS (18 sets, daily range): BP systolic 104–162; BP diastolic 62–86
--- NOTE | 2023-03-29 00:35 | NUR ---
CALLED DR FERRELL IN REGARDS TO CLIMBING WBC. ORDERED MORNING BLOOD WORK STAT AT THIS TIME. AWAITING RESULTS.
[2023-03-29 01:15] LABS: Hematocrit 29.6 % (33.0-51.0); Hemoglobin 9.7 g/dL (11.5-16.0); Mean Corpuscular HGB 32.7 pg (26.0-34.0); Mean Corpuscular HGB Conc 32.8 g/dL (31.5-36.5); Mean Corpuscular Volume 100 fL (80-100); Mean Platelet Volume 9.6 fL (9.1-12.4); NRBC ABSOLUTE 0.07 K/mm3 (0.00-0.02); NRBC Auto 0.2 /100 WBC (0.0-0.2); Platelet Count 411 K/mm3 (150-400); RDW Standard Deviation 50.6 fL (35.1-46.3); Red Blood Cell Count 2.97 M/mm3 (3.80-5.20); White Blood Cell Count 34.41 K/mm3 (4.00-11.30)
[2023-03-29 01:31] LABS: Bun/Creatinine Ratio 26.3 (12.0-20.0); Calcium, Blood 8.9 mg/dL (8.5-10.1); Creatinine, Blood 0.8 mg/dL (0.40-1.00); Magnesium, Blood 2.1 mg/dL (1.6-2.4); Phosphorus, Blood 1.9 mg/dL (2.5-4.9); Potassium, Blood 3.7 mmol/L (3.5-5.5)
[2023-03-29 01:45] LABS: BAND PERCENT MAN 1 % (0-8); BASOPHILS PERCENT MAN 0 % (0-2); EOSINOPHILS ABSOLUTE MAN 0.34 K/mm3 (0.00-0.68); EOSINOPHILS PERCENT MAN 1 % (0-6); LYMPHOCYTES PERCENT MAN 7 % (21-46); MONOCYTES ABSOLUTE MAN 1.03 K/mm3 (0.16-1.47); MONOCYTES PERCENT MAN 3 % (4-13); MYELOCYTE ABSOLUTE MAN 1.72 K/mm3 (0.00-0.00); MYELOCYTE PERCENT MAN 5 % (0-0); SEG NEUTROPHILS PERCENT MAN 83 % (41-73); TOTAL CELLS COUNTED 100
--- NOTE | 2023-03-29 05:45 | NUR ---
END OF SHIFT SUMMARY PT INCREASINGLY WEAK AND TACHYPNEIC. PT ENCOURAGED TO DEEP BREATH AND COUGH FREQUENTLY THROUGHOUT SHIFT. DAUGHTER AT BEDSIDE WITH EXTRA ENCOURAGMENT. C/O ANXIETY AND PAIN EVEN AFTER MEDICATIONS EXHAUSTED. RESP- THICK CARVALHO/PINK VERY STICKY MUCOUS NOTED. COUGH IS STILL VERY WEAK, HOWEVER IS BECOMING MORE PRODUCTIVE. AIRVO REMAINED THE SAME THIS SHIFT 45L/55%. DESATS WITH ANY EXERTION OR TALKING. CARDIAC-SR WITH SOME ST SCATTERED DEPENDING ON ANXIETY LEVELS. SBP CURRENTLY 150'S. INCREASED NONPITTING EDEMA NOTED THIS AM. STAT BNP ORDERED AND FLUIDS ON SB. GI,- PUREWICK INPLACE WITH YELLOW/LIGHT ORANGE URINE AND SOME SEDIMENT NOTED. SALINE LOCKED WILL CONTINUE TO MONITOR UNTIL REPORT GIVEN THIS AM.
--- NOTE | 2023-03-29 08:04 | NUR ---
Assumed care at approximately 0700. Bedside report received from nightshift RN. Pt resting in bed, alert and oriented but very lethargic. On airvo 45L, 50% Fi02. NG tube in place, to low suction. Pt c/o abdominal pain at time of report, PRN pain meds administered, see EMAR. Puriwick in place. VS stable, will continue to monitor.
--- NOTE | 2023-03-29 18:26 | NUR ---
Shift summary. Pt slightly improved today, up to chair for several hours this afternoon. Able to stand w/gait belt and two person assist. Pt able to tolerate movement without desaturating. Pt titrated off airvo for several hours this afternoon to himidified high-flow NC at 6 L/min. Pt worked with PT/OT. PICC line placed this am. Puriwick in place. VS stable, see chart for further details. Will continue to monitor and report off to nightshift RN.
--- NOTE | 2023-03-29 19:26 | NUR ---
ASSUMED CARE OF PT AT 1900 PT SLEEPING IN BED WITH DAUGHTER AT BEDSIDE DURING BEDSIDE SHIFT REPORT. VITALS WNL AT THIS TIME. PUREWICK IN PLACE WITH YELLOW URINE PRESENT. SEE FULL ASSESSMENT FOR FURTHER INFORMATION.
[2023-03-30] VITALS (39 sets, daily range): BP systolic 116–158; BP diastolic 60–84
[2023-03-30 04:49] LABS: Hematocrit 29.1 % (33.0-51.0); Hemoglobin 9.6 g/dL (11.5-16.0); Mean Corpuscular HGB 32.1 pg (26.0-34.0); Mean Corpuscular Volume 97 fL (80-100); Mean Platelet Volume 9.6 fL (9.1-12.4); NRBC ABSOLUTE 0.02 K/mm3 (0.00-0.02); NRBC Auto 0.1 /100 WBC (0.0-0.2); Platelet Count 451 K/mm3 (150-400); RDW Standard Deviation 49.6 fL (35.1-46.3); Red Blood Cell Count 2.99 M/mm3 (3.80-5.20); White Blood Cell Count 26.44 K/mm3 (4.00-11.30)
--- NOTE | 2023-03-30 05:10 | NUR ---
END OF SHIFT SUMMARY CONTINUED PROGRESS ALL AROUND. A/O X4. NO ACUTE CHANGES THIS SHIFT. VITALS WNL FOR PATIENT. PAIN MANAGED WITH DILAUDID Q2 HOURS. PUREWICK STILL IN PLACE WITH SIGNIFICANT OUTPUT (SEE I/O CHARTING) NO CHANGES IN AIRVO SETTINGS THIS SHIFT. 45L/45% FI02. NO BM THIS SHIFT. WILL CONTINUE TO MONITOR UNTIL REPORT GIVEN TO AM RN.
[2023-03-30 05:11] LABS: Bun/Creatinine Ratio 16.1 (12.0-20.0); Calcium, Blood 8.7 mg/dL (8.5-10.1); Creatinine, Blood 0.87 mg/dL (0.40-1.00); Magnesium, Blood 1.7 mg/dL (1.6-2.4); Phosphorus, Blood 2.7 mg/dL (2.5-4.9); Potassium, Blood 3.5 mmol/L (3.5-5.5)
[2023-03-30 05:44] LABS: BAND PERCENT MAN 3 % (0-8); BASOPHILS ABSOLUTE MAN 0.26 K/mm3 (0.00-0.23); BASOPHILS PERCENT MAN 1 % (0-2); EOSINOPHILS ABSOLUTE MAN 0.52 K/mm3 (0.00-0.68); EOSINOPHILS PERCENT MAN 2 % (0-6); LYMPHOCYTES ABSOLUTE MAN 3.17 K/mm3 (0.84-5.20); LYMPHOCYTES PERCENT MAN 12 % (21-46); MONOCYTES ABSOLUTE MAN 2.64 K/mm3 (0.16-1.47); MONOCYTES PERCENT MAN 10 % (4-13); MYELOCYTE ABSOLUTE MAN 1.85 K/mm3 (0.00-0.00); MYELOCYTE PERCENT MAN 7 % (0-0); NEUTROPHILS ABSOLUTE MAN 17.97 K/mm3 (1.96-9.15); SEG NEUTROPHILS PERCENT MAN 65 % (41-73); TOTAL CELLS COUNTED 100
--- NOTE | 2023-03-30 07:07 | NUR ---
Assumed care at 0700, bedside report received from nightsakft RN. Pt resting in bed, on Airvo at 30L, 50%. PICC in place, carlos ESPINOZA. Serjio drain in place, RUQ. Puriwick to suction. No acute needs at time of report. Will continue to monitor.
--- NOTE | 2023-03-30 11:06 | NUR ---
At approximately 1051 pt cardiac rhythm changed to SVT, rate 170-180s on monitor. Dr. Parrish called to bedside, pt successfully converted back to sinus rhythm with vagal maneuvers and carotid massage. Carotid massage done on right side as pt has a history of carotid stent placement on left.
--- NOTE | 2023-03-30 18:33 | NUR ---
Shift summay. Pt continues to improve throughout shift today. Up to chair, worked with PT. One event this shift, pt had run of SVT, able to convert back to sinus rhythm with vagal maneuvers, see note. 02 titrated down to 2 L/min via NC. No other acute events this shift, see chart for further details. Will report off to nightshift RN.
--- NOTE | 2023-03-30 19:03 | NUR ---
ASSUMED CARE OF PT AT 1900 PT RESTING IN BED WITH DAUGHTER AT BEDSIDE DURING BEDSIDE SHIFT REPORT. PUREWICK IN PLACE. CURRENTLY IN SINUS RYTHM WITH HR 90'S. SBP 150'S. SPO2 >93% ON 2L NC. SEE FULL ASSESSMENT FOR FURTHER INFORMATION.
[2023-03-31] VITALS (17 sets, daily range): BP systolic 121–174; BP diastolic 67–90
[2023-03-31 03:19] LABS: Hematocrit 28.1 % (33.0-51.0); Hemoglobin 9.3 g/dL (11.5-16.0); Mean Corpuscular HGB 32.5 pg (26.0-34.0); Mean Corpuscular HGB Conc 33.1 g/dL (31.5-36.5); Mean Corpuscular Volume 98 fL (80-100); Mean Platelet Volume 9.7 fL (9.1-12.4); Platelet Count 449 K/mm3 (150-400); RDW Coefficient Variation 13.8 % (11.7-14.2); RDW Standard Deviation 50.1 fL (35.1-46.3); Red Blood Cell Count 2.86 M/mm3 (3.80-5.20); White Blood Cell Count 28.13 K/mm3 (4.00-11.30)
[2023-03-31 03:36] LABS: Albumin, Blood 1.9 g/dL (3.4-5.0); Anion Gap 6 mmol/L (6-16); Blood Urea Nitrogen 17 mg/dL (8-24); Bun/Creatinine Ratio 21.7 (12.0-20.0); CO2, Blood 30 mmol/L (21-32); Calcium, Blood 8.7 mg/dL (8.5-10.1); Chloride, Blood 106 mmol/L (98-108); Creatinine, Blood 0.78 mg/dL (0.40-1.00); Glomerular Filtration Rate 82 (60-); Glucose, Blood 108 mg/dL (70-99); Magnesium, Blood 2.1 mg/dL (1.6-2.4); Phosphorus, Blood 2.5 mg/dL (2.5-4.9); Sodium, Blood 142 mmol/L (136-145)
[2023-03-31 04:21] LABS: BAND PERCENT MAN 1 % (0-8); BASOPHILS PERCENT MAN 0 % (0-2); EOSINOPHILS PERCENT MAN 0 % (0-6); LYMPHOCYTES ABSOLUTE MAN 3.93 K/mm3 (0.84-5.20); LYMPHOCYTES PERCENT MAN 14 % (21-46); METAMYELOCYTE ABSOLUTE MAN 1.68 K/mm3 (0.00-0.00); METAMYELOCYTE PERCENT MAN 6 % (0-0); MONOCYTES ABSOLUTE MAN 1.68 K/mm3 (0.16-1.47); MONOCYTES PERCENT MAN 6 % (4-13); MYELOCYTE ABSOLUTE MAN 0.84 K/mm3 (0.00-0.00); MYELOCYTE PERCENT MAN 3 % (0-0); NEUTROPHILS ABSOLUTE MAN 19.97 K/mm3 (1.96-9.15); SEG NEUTROPHILS PERCENT MAN 70 % (41-73); TOTAL CELLS COUNTED 100
--- NOTE | 2023-03-31 06:06 | NUR ---
END OF SHIFT SUMMARY PT DID NOT REST WELL D/T CONTINUED PAIN AROUND SURGICAL AREAS WITH MED REQUESTS EVERY 2 HOURS. --GI,-PUREWICK IN PLACE WITH GOOD OUTPUT (SEE I/O CHARTING). NO BM THIS SHIFT. NG TO INT SUCTION WITH DARK BROWN/GREEN CONTENT. NPO CONTINUED THIS SHIFT. --CARDIAC- SR WITH OCCASIONAL PVC'S. NO OTHER CARDIAC EVENTS THIS SHIFT. WILL CONTINUE TO MONITOR UNTIL REPORT GIVEN TO AM RN.
--- NOTE | 2023-03-31 17:28 | NUR ---
SHIFT SUMMARY NO ACUTE CHANGES THIS SHIFT. PT HAS REMAINED AWAKE, ALERT, AND ORIENTED. PT ANSWERS QUESTIONS APPROPRIATELY AND IS ABLE TO MAKE NEEDS KNOWN. PT HAS COMPLAINED OF RIGHT SIDED ABD PAIN THROUGHOUT THIS SHIFT. PT MED WITH DILAUDID PER EMAR. PT WITH NGT IN PLACE WITH MINIMAL AMOUNT OF DARK BROWN/BILE COLORED OUTPUT NOTED. NATIVIDAD DRAIN TO RIGHT ABD REMAINS C/D/I WITH SEROUS DRAINAGE NOTED. INCISION SITES REMAIN UNCHANGED. PICC TO ALEXIS IN PLACE WITH NS INFUSING TKO. PUREWICK REMAINS IN PLACE WITH YELLOW URINE OUTPUT NOTED IN DRAINAGE CONTAINER. PT SHIFTING SELF IN BED INDEPENDENTLY. VITAL SIGNS HAVE REMAINED STABLE. PT ON 2L O2 NC. MULTIPLE VISITORS IN AND OUT THROUGHOUT THE SHIFT. WILL CONTINUE TO MONITOR AND REPORT OFF TO ONCOMING RN.
--- NOTE | 2023-03-31 19:00 | NUR ---
ASSUME CARE: I have assumed care of this patient.
[2023-04-01] VITALS (9 sets, daily range): BP systolic 107–167; BP diastolic 55–80
[2023-04-01 05:13] LABS: Hematocrit 27.9 % (33.0-51.0); Hemoglobin 9.2 g/dL (11.5-16.0); Mean Corpuscular HGB 32.4 pg (26.0-34.0); Mean Corpuscular Volume 98 fL (80-100); Platelet Count 467 K/mm3 (150-400); RDW Standard Deviation 50.2 fL (35.1-46.3); Red Blood Cell Count 2.84 M/mm3 (3.80-5.20); White Blood Cell Count 23.18 K/mm3 (4.00-11.30)
[2023-04-01 05:41] LABS: Albumin, Blood 1.9 g/dL (3.4-5.0); Anion Gap 6 mmol/L (6-16); Blood Urea Nitrogen 19 mg/dL (8-24); Bun/Creatinine Ratio 25.3 (12.0-20.0); CO2, Blood 29 mmol/L (21-32); Calcium, Blood 9.2 mg/dL (8.5-10.1); Chloride, Blood 103 mmol/L (98-108); Creatinine, Blood 0.75 mg/dL (0.40-1.00); Glomerular Filtration Rate 86 (60-); Glucose, Blood 100 mg/dL (70-99); Sodium, Blood 138 mmol/L (136-145)
[2023-04-01 05:58] LABS: BAND PERCENT MAN 3 % (0-8); BASOPHILS PERCENT MAN 0 % (0-2); EOSINOPHILS PERCENT MAN 0 % (0-6); LYMPHOCYTES ABSOLUTE MAN 3.94 K/mm3 (0.84-5.20); LYMPHOCYTES PERCENT MAN 17 % (21-46); METAMYELOCYTE ABSOLUTE MAN 0.69 K/mm3 (0.00-0.00); METAMYELOCYTE PERCENT MAN 3 % (0-0); MONOCYTES ABSOLUTE MAN 0.69 K/mm3 (0.16-1.47); MONOCYTES PERCENT MAN 3 % (4-13); MYELOCYTE ABSOLUTE MAN 0.46 K/mm3 (0.00-0.00); MYELOCYTE PERCENT MAN 2 % (0-0); NEUTROPHILS ABSOLUTE MAN 17.38 K/mm3 (1.96-9.15); SEG NEUTROPHILS PERCENT MAN 72 % (41-73); TOTAL CELLS COUNTED 100
--- NOTE | 2023-04-01 06:00 | NUR ---
SHIFT SUMMARY: Patient repositions independently. She is plesantly A/O x 4. Leydi still requires PRN analgesic frequently, however she did only receive 3mg dilaudid last night. Pt was up to commode for attempted BM with one person assist. Purewick in place with good UOP. No output from Serjio drain. She has been snacking on ice chips througout the day yesterday and had significant NG output overnight. Total fluid balance -1545.
--- NOTE | 2023-04-01 07:15 | NUR ---
CARE ASSUMPTION DURING BEDSIDE SHIFT REPORT Eleanor ESCAMILLA RN THE PT IS LYING IN BED APPEARING COMFORTABLE WEARING 2L NC. PT IS ALERT COMMUNICATING APPROPRIATELY W STAFF. PT'S MONITOR SHOWING SR 80'S W PVC'S. BP ELEVATED BUT STABLE W SBP IN THE 160'S. PT HAS C/O MODERATE PAIN IN HER RLQ. PT HAS NATIVIDAD DRAIN ON RLQ. PT W NG TUBE HOOKED TO LIS DRAINING DARK BROWN LIQUID.
--- NOTE | 2023-04-01 17:46 | NUR ---
DAY SHIFT SUMMARY PT HAS REMAINED ALERT AND ORIENTED THIS SHIFT COMMUNICATING APPROPRIATELY W STAFF. PT'S NG TUBE DC'D THIS SHIFT AFTER IMAGING SHOWED THAT THERE WAS NO INTESTINAL LEAK SO PT PLACED ON CLEAR LIQUID DIET. PT HAD 3 LOOSE BM'S THIS SHIFT. PT TOLERATING CLEAR LIQUID DIET THIS SHIFT. PT IN THE RECLINER FOR THE FIRST HALF OF THE DAY BEFORE RETURNING TO BED THIS AFTERNOON. PT UP IN RM AMBULATING TO THE TOILET W FWW AND MINIMAL ASSISTANCE MULTIPLE TIMES T/O THE SHIFT. PT MAINTAINING SPO2 >92% ON 2L NC THIS SHIFT. PT'S STABLE THIS SHIFT. MONITOR SHOWING SR 80'S-90'S W PVC'S THIS SHIFT. PT AFEBRILE THIS SHIFT W PEAK TEMP 98.3. NATIVIDAD DRAIN DRAINING 30ML YELLOW BILE THIS SHIFT. PT HAD SEVERE RLQ PAIN THIS AM AND WAS GIVEN IV PAIN MEDICATION X2 THIS AM BUT AFTER SHE HAD A BM SHE HAS DENIED ANY SIGNIFICANT PAIN THIS AFTERNOON. CBG'S STABLE THIS SHIFT NOT REQUIRING ANY INSULIN COVERAGE. WILL REPORT TO ONCOMING ASHLEY
--- NOTE | 2023-04-01 21:16 | NUR ---
ASSUMPTION OF CARE/ASSESSMENT: ASSUMED CARE OF PT AT 1900. PT IN BED ASLEEP, BUT WAKES EASILY TO VERBAL STIMULI. PT PLEASANT AND A&O X 4; PT ABLE TO COMMUNICATE NEEDS APPROPRIATELY. PT ON NC @ 2LPM WITH SPO2 94<, AND PT DENIES SOB AT THIS TIME. SR ON MONITOR WITH HR 70-80, SBP 130'S, PT DENIES CHEST PAIN AND CONTINUOUS OIL BURNER REPAIRER IN PLACE. HYPOACTIVE BOWEL SOUNDS IN ALL QUADRANTS; FOUR INCISON SITES ON ABD FROM MARSHA LAPROSCOPIC SURGERY THAT ARE ALL LOOKING GOOD; MOST MIDLINE, CLOSE TO UMBILICUS INCISION SITE IS SLIGHTLY REDDENED. NATIVIDAD DRAIN TO RLQ THAT IS DRAINING SEROUS OUTPUT; SLIGHT PAIN UPON PALPATION. PT DIET ADVANCED AT DINNER TO CLEAR LIQUIDS; PT HAS BEEN TOLERATING PO INTAKE AND DENIES N/V. PT AMBULATING WITH FWW AND SBA FOR CORDS TO TOILET IN ROOM FOR ELIMINATION NEEDS; UP TO TOILET AT THE START OF THE SHIFT AND GAIT STEADY AND EVEN. PT ABLE TO REPOSITION SELF IN BED INDEPENDENTLY. PT HAD C/O PAIN IN ABD, 6/, MEDICATED PER EMAR. BED LOWERED, CALL LIGHT IN REACH.
--- NOTE | 2023-04-01 23:28 | NUR ---
PT TRANSFER TO PCU 19: REPORT GIVEN TO SHONA RAMIREZ. ALL PT BELONGINGS AND MEDICATIONS TRANSFERRED WITH PT. PT LEFT THE UNIT AT 2315. SIGNALER TO NOTIFY FAMILY IN THE MORNING.
[2023-04-02] VITALS (24 sets, daily range): BP systolic 63–164; BP diastolic 39–73
--- NOTE | 2023-04-02 06:14 | NUR ---
SHIFT SUMMARY PATIENT TRANSFERRED FROM ICU TO PCU 19. PATIENT ALERT, ORIENTED x4, FLAT AFFECT. BP STABLE, PATIENT ON 2-4L NC DURING THE NIGHT WITH SPO2 LOW TO MID 90s. MEDICATED PER EMAR FOR PAIN AND NAUSEA. NATIVIDAD DRAIN TO RLQ WITH SERIOUS FLUID. ABDOMINAL INCISIONS SONIA. STANDBY ASSIST TO BEDSIDE COMMODE. PATIENT HAVING LIQUID, DARK, BILIOUS STOOL. TOLERATING MINIMAL CLEAR LIQUIDS. NO OTHER CHANGES SINCE TRANSFER, WILL REPORT TO DAY SHIFT RN.
--- NOTE | 2023-04-02 10:34 | NUR ---
ASSUMPTION OF CARE ASSUMED CARE AT APPROX 0700. PT AOX4. FLAT AFFECT NOTED, COOPERATIVE W/ CARE. VSS. TELEMETRY SHOWING SR 60'S-70'S. PT CURRENTLY ON 2-4L VIA NC, SATS >90%. WILL INTERMITTENTLY DESAT TO UPPER 80'S WHILE SLEEPING DEEPLY. IS CURRENTLY RECEIVING IV DILAUDID PER EMAR FOR ABD PAIN MANAGEMENT. X4 ABD SITES APPEAR WNL, SOME MINOR REDNESS ASSESSED AT MIDLINE SITE. WILL CONTINUE TO MONITOR. PT TOLERATING CLEAR LIQUID DIET. NATIVIDAD DRAIN IN RLQ W/ SEROUS OUTPUT. BILIOUS LIQUID STOOL. PT UP W/ 1P SBA TO BSC W/ FWW. VOIDING. CALL LIGHT IN REACH.
--- NOTE | 2023-04-02 13:09 | NUR ---
UPDATE UPON ENTERING THE ROOM AT 1245, THIS RN ASSESSED THAT PT WAS SLUMPED OVER ON BEDSIDE COMMODE. GARBLED SPEECH, DIFFICULTY W/ CONVERSATION, AND INCREASED L SIDED WEAKNESS ASSESSED. CALLED VILMA RAMIREZ TO BEDSIDE TO ASSIST W/ GETTING PT OFF OF COMMODE. WHEN ASKED TO SMILE, CLEAR L SIDE FACIAL DROOP ASSESSED. VSS. DR. NELSON PROMPTLY NOTIFIED, TO BEDSIDE. RCVD STAT ORDERS. ASPIRIN ADMINISTERED PER EMAR. PT ABLE TO SWALLOW W/O DIFFICULTY. CURRENTLY RESTING IN BED AWAITING STAT HEAD CT. WILL CONTINUE TO MONITOR.
--- NOTE | 2023-04-02 13:38 | NUR ---
UPDATE PT BACK IN ROOM AFTER STAT HEAD CT. NO WORSENING SYMPTOMS, SPEECH SEEMS TO BE BECOMING CLEARER. WILL CONTINUE TO MONITOR
--- NOTE | 2023-04-02 15:05 | NUR ---
UPDATE AT APPROX 1435, MD NELSON TO BEDSIDE TO DISCUSS HEAD CT RESULTS AND PLAN OF CARE GOING FORWARD. PT REMAINS ALERT AND ORIENTED X4. SIGNS AND SYMPTOMS OF ACUTE PROCESS RESOLVED AT THIS TIME. PT IS ABLE TO COMMUNICATE IN FULL SENTENCES, SPEECH CLEAR. NO FACIAL DROOP ASSESSED. WEAKNESS IMPROVED. PT REPORTS THAT SHE "IS FEELING A LOT BETTER." MD NELSON PUT IN NEW ORDERS. PO PLAVIX ADMINISTERED PER EMAR. LUNCHROOM OPERATOR TO BEDSIDE SHORTLY AFTER TO PERFORM RENAL ULTRASOUND. CALL LIGHT IN REACH.
--- NOTE | 2023-04-02 17:52 | NUR ---
SHIFT SUMMARY SEE PREVIOUS NOTES REGARDING ACUTE CHANGE IN STATUS. PT HAS REMAINED AOX4 THROUGHOUT SHIFT. NO OTHER ACUTE EPISODES SINCE THIS AFTERNOON. PT HAS RETURNED TO BASELINE STATUS. VSS. TELEMETRY CONTINUING TO SHOW SR 70'S. BP STABLE. PT CURRENTLY ON 1L VIA NC, SATS >90%. MANAGING ABD PAIN PER EMAR. NO CHANGES X4 ABD SITES, WNL. NATIVIDAD DRAIN CONTINUING TO DRAIN SEROUS OUTPUT. PT REPORTS DECREASED APPETITE. MULTIPLE BM'S THIS SHIFT, LOOSE STOOL. VOIDING. PT UP W/ 1P ASSIST TO BSC W/ FWW. PT CURRENTLY RESTING IN BED. IV ABX INFUSING. CALL LIGHT IN REACH.
--- NOTE | 2023-04-02 22:01 | NUR ---
RECEIVED REPORT FROM ASHLEY PINTO. AWAIT PATIENT ADMISSION TO ICU FOLLOWING STAT IMAGING.
--- NOTE | 2023-04-02 22:05 | NUR ---
PT ARRIVED TO ICU ROOM 11 VIA HOSPITAL BED.
[2023-04-02 23:03] LABS: Mean Corpuscular HGB 32.1 pg (26.0-34.0); Mean Corpuscular HGB Conc 30.9 g/dL (31.5-36.5); Mean Platelet Volume 10.6 fL (9.1-12.4); NRBC ABSOLUTE 0.03 K/mm3 (0.00-0.02); NRBC Auto 0.1 /100 WBC (0.0-0.2); Platelet Count 453 K/mm3 (150-400); RDW Coefficient Variation 14.2 % (11.7-14.2); RDW Standard Deviation 54.2 fL (35.1-46.3); Red Blood Cell Count 1.68 M/mm3 (3.80-5.20); White Blood Cell Count 27.77 K/mm3 (4.00-11.30)
[2023-04-02 23:04] LABS: Mean Corpuscular Volume 104 fL (80-100)
[2023-04-02 23:08] LABS: Hemoglobin 5.4 g/dL (11.5-16.0)
[2023-04-02 23:09] LABS: Hematocrit 17.5 % (33.0-51.0)
[2023-04-02 23:22] LABS: BAND PERCENT MAN 3 % (0-8); BASOPHILS PERCENT MAN 0 % (0-2); EOSINOPHILS PERCENT MAN 0 % (0-6); LYMPHOCYTES % ATYPICAL MANUAL 2 % (0-0); LYMPHOCYTES ABSOLUTE MAN 3.05 K/mm3 (0.84-5.20); LYMPHOCYTES PERCENT MAN 9 % (21-46); METAMYELOCYTE ABSOLUTE MAN 0.83 K/mm3 (0.00-0.00); METAMYELOCYTE PERCENT MAN 3 % (0-0); MONOCYTES ABSOLUTE MAN 0.55 K/mm3 (0.16-1.47); MONOCYTES PERCENT MAN 2 % (4-13); MYELOCYTE ABSOLUTE MAN 0.83 K/mm3 (0.00-0.00); MYELOCYTE PERCENT MAN 3 % (0-0); NEUTROPHILS ABSOLUTE MAN 22.49 K/mm3 (1.96-9.15); SEG NEUTROPHILS PERCENT MAN 78 % (41-73); TOTAL CELLS COUNTED 100
[2023-04-02 23:23] LABS: Bun/Creatinine Ratio 16.7 (12.0-20.0); Calcium, Blood 7.9 mg/dL (8.5-10.1); Creatinine, Blood 1.2 mg/dL (0.40-1.00); Potassium, Blood 3.9 mmol/L (3.5-5.5)
[2023-04-03] VITALS (101 sets, daily range): BP systolic 41–152; BP diastolic 13–136
--- NOTE | 2023-04-03 02:24 | NUR ---
TRANSFER TO ICU NOTE: EARLY INTO THE SHIFT ~2109 THIS RN NOTIFIED BY MEDICAL LAB SCIENTIST MIKE THAT PT WAS NOTED TO HAVE INCREASED WORK OF BREATHING W/ INTENSE SOB, SKIN VERY DIAPHORETIC/CLAMMY, AND PT REPORTED FEELING VERY ANXIOUS/DIZZY. VITAL SIGNS WERE TAKEN WITH BP 102/67, RR 28-35 WITH SPO2 100% ON 2L VIA NC, AND HR ST 100. THIS RN TO BEDSIDE FROM A DIFFERENT PT ROOM AT 2110. VITAL SIGNS RECHECKED WITH NOTED DROP IN BLOOD PRESSURES. SEE DOCUMENT V/S FOR DETAILS. EKG PERFORMED WELL BLOOD GLUCOSE CHECKED WITH CBG 227. PT THEN ENDORSED TINGLING IN BLE WITH PUPILS NOW NOTED TO BE UNEQUAL IN SIZE WITH RIGHT PUPIL NOTED TO BE NON-REACTIVE TO LIGHT. PT ALSO ENDORSED VISUAL FIELD CHANGES INCLUDING BLURRY VISION, SPOTS, AND DECREASED PERIPHERAL VISION. DR. ARREGUIN NOTIFIED WITH PROVIDER TO BEDSIDE AT 2134 FOR ASSESSMENT. STAT HEAD CT W/O CONTRAST STROKE PROTOCOL ORDERED BY PROVIDER. BLOOD PRESSURES CONTINUED TO DROP WITH RAPID RESPONSE INITIATED AT 2144. ONLINE MEDIA BUYER TO BEDSIDE FOLLOWED BY ARRIVAL OF DR. ZARAGOZA TO ROOM AT 2146. 1L NS BOLUS ORDERED BY DR. ZARAGOZA. BOLUS STARTED WITH MINIMAL EFFECT ON BP. NEW ORDERS GIVEN BY DR. ZARAGOZA FOR INITIATION OF LEVOPHED gtt AND TRANSFER TO ICU AFTER STAT CT. PT TRANSPORTED TO CT AT 2149 ACCOMPANIED BY PCU MEDICAL LAB SCIENTIST MIKE WELL PUBLIC HEALTH ASSISTANT DEIDRA DENTON. REPORT GIVEN TO PUBLIC HEALTH ASSISTANT JESSICA ESCALANTE ~2199. PT ARRIVED FROM CT TO ICU AT 2214.
[2023-04-03 06:34] LABS: PCO2 Arterial 29.9 mmHg (35-45); PO2 Arterial 64.6 mmHg (80-100); pH Blood Arterial 7.49 (7.35-7.45)
[2023-04-03 07:01] LABS: Hematocrit 21.5 % (33.0-51.0); Hemoglobin 6.9 g/dL (11.5-16.0); Mean Corpuscular HGB 31.4 pg (26.0-34.0); Mean Corpuscular HGB Conc 32.1 g/dL (31.5-36.5); Mean Platelet Volume 11.4 fL (9.1-12.4); NRBC ABSOLUTE 0.34 K/mm3 (0.00-0.02); NRBC Auto 0.8 /100 WBC (0.0-0.2); Platelet Count 352 K/mm3 (150-400); RDW Coefficient Variation 15.1 % (11.7-14.2); RDW Standard Deviation 52.5 fL (35.1-46.3); White Blood Cell Count 40.28 K/mm3 (4.00-11.30)
--- NOTE | 2023-04-03 07:02 | NUR ---
UPDATE AT APPROXIMATELY 0545, PT WAS AGITATED AND RESTLESS. ANSWERED SIMPLE QUESTIONS AND WAS MOANING. FOLLOWED SIMPLE COMMANDS. BP 135/105- CHECKED MULTIPLE TIMES. LEVOPHED WAS PUT ON STANDBY AT THAT TIME. AT APPROXIMATELY 0615, PT WAS OBTUNDED. RR 40s. PUPILS 6-7MM, SLUGGISH. NO SPONTANEOUS MOVEMENT NOTED AT THAT TIME. LAB IN ROOM ATTEMPTING TO DRAW LABS. DR. ZARAGOZA NOTIFIED OF CHANGE IN NEURO STATUS. DR. ZARAGOZA ARRIVED TO ROOM AT 0620 TO EVALUATE PT. ABG DRAWN AT 0628. NEW POWER GLIDE PLACED. LR BOLUS STARTED WHILE WAITING FOR STAT PRBCs. DR. CLARK AND DR. VALENCIA NOTIFIED. LEVOPHED RESTARTED AT 0635 WITH BP 41/13. AT 0650, LEVOPHED IS AT 15MCG/MIN. DR. CLARK AT BEDSIDE- PLAN IS FOR PT TO GO TO [facility] FOR INTERVENTIONAL RADIOLOGY. REPORT GIVEN TO DAY SHIFT RN. STILL WAITING FOR PRBCs FROM LAB.
[2023-04-03 07:03] LABS: Mean Corpuscular Volume 98 fL (80-100)
[2023-04-03 07:07] LABS: Bun/Creatinine Ratio 20.3 (12.0-20.0); Calcium, Blood 7.9 mg/dL (8.5-10.1); Creatinine, Blood 1.18 mg/dL (0.40-1.00); Potassium, Blood 4.6 mmol/L (3.5-5.5)
[2023-04-03 09:28] LABS: Hematocrit 23.8 % (33.0-51.0); Hemoglobin 8.2 g/dL (11.5-16.0); Mean Corpuscular HGB 31.7 pg (26.0-34.0); Mean Corpuscular HGB Conc 34.5 g/dL (31.5-36.5); Mean Platelet Volume 11.1 fL (9.1-12.4); NRBC Auto 0.5 /100 WBC (0.0-0.2); Platelet Count 275 K/mm3 (150-400); RDW Coefficient Variation 14.1 % (11.7-14.2); RDW Standard Deviation 46.8 fL (35.1-46.3); Red Blood Cell Count 2.59 M/mm3 (3.80-5.20); White Blood Cell Count 39.67 K/mm3 (4.00-11.30)
[2023-04-03 09:29] LABS: Mean Corpuscular Volume 92 fL (80-100)
[2023-04-03 10:18] LABS: International Normalized Ratio 1.42; Prothrombin Time Results 14.6 Sec (9.7-11.5)
[2023-04-03 10:33] LABS: BAND PERCENT MAN 8 % (0-8); BASOPHILS PERCENT MAN 0 % (0-2); EOSINOPHILS PERCENT MAN 0 % (0-6); LYMPHOCYTES ABSOLUTE MAN 3.57 K/mm3 (0.84-5.20); LYMPHOCYTES PERCENT MAN 9 % (21-46); METAMYELOCYTE ABSOLUTE MAN 0.39 K/mm3 (0.00-0.00); METAMYELOCYTE PERCENT MAN 1 % (0-0); MONOCYTES ABSOLUTE MAN 0.79 K/mm3 (0.16-1.47); MONOCYTES PERCENT MAN 2 % (4-13); MYELOCYTE ABSOLUTE MAN 1.19 K/mm3 (0.00-0.00); MYELOCYTE PERCENT MAN 3 % (0-0); NEUTROPHILS ABSOLUTE MAN 33.71 K/mm3 (1.96-9.15); SEG NEUTROPHILS PERCENT MAN 77 % (41-73); TOTAL CELLS COUNTED 100
[2023-04-03 10:50] LABS: Source, Urine Foley catheter
--- NOTE | 2023-04-03 11:13 | NUR ---
ASSUMPTION OF CARE REPORT RECEIVED FROM NOC RN. PT RESTING IN BED, ALERT TO VERBAL STIMULI, ABLE TO ANSWER SOME QUESTIONS. PT VERY PALE, COLD, AND DIAPHORETIC. PT IN SR RATE OF 80-90'S, LEVOPHED INFUSING AT 15MCG/MIN TO MAINTAIN MAP >65. NO EDEMA NOTED, ABDOMEN DISTENDED, PT DENIES PAIN. ABDOMINAL INCISIONS WNL. LUNG SOUNDS COARSE THROUGHOUT, PT ON 6L VIA NC OXYGEN SATURATION > 95%. DR. VALENCIA AT [facility]. 1 UNIT PRBC'S INFUSING AT THIS TIME. [facility] AT 0735. 1 UNIT PRBCS INFUSED USING RAP[facility] TRANSFUSER WHILE IN THE [facility] SHIFT [facility] ALONG WITH 1 UNIT OF PLASMA. LEVOPHED TITRATED OFF. PT BACK TO ICU AT 0820. LEVOPHED STARTED BACK UP AT 6MCG TITRATED UP TO 8MCG TO MAINTAIN MAP >65. CHG DRESSING IN PLACE TO RIGHT GROIN, NO BLEEDING OR HEMATOMA NOTED. PT GIVEN 1 UNIT FFP ONCE BACK TO THE ROOM. PT HAD MULTIPLE EPISODES OF LARGE BLOODY OUTPUT PER RECTUM. PAZ INSERTED PER ORDERS, UA SENT. FAMILY AT THE BEDSIDE, UPDATE BY PROVIDER.
[2023-04-03 11:49] LABS: Appearance, Urine Clear (Clear); Bilirubin, Urine Neg (Neg); Blood, Urine Neg (Neg); Color, Urine Yellow (P-Yellow); Glucose Qualitative, Urine Neg (Neg); Ketones, Urine Neg (Neg); Leukocyte Esterase, Urine Neg (Neg); Nitrite, Urine Neg (Neg); Protein, Urine 2+ (Neg); Urobilinogen, Urine NORM (Normal)
[2023-04-03 12:16] LABS: Base Excess Venous 5.2 mmol/L; Bicarbonate Venous 28.3 mmol/L (24.0-30.0); PCO2 Venous 43.6 mmHg (38-42); pH Blood Venous 7.44 (7.34-7.37)
[2023-04-03 12:53] LABS: Hemoglobin 7.7 g/dL (11.5-16.0); Mean Corpuscular Volume 91 fL (80-100); Mean Platelet Volume 11.5 fL (9.1-12.4); NRBC ABSOLUTE 0.32 K/mm3 (0.00-0.02); NRBC Auto 0.9 /100 WBC (0.0-0.2); Platelet Count 287 K/mm3 (150-400); RDW Coefficient Variation 14.1 % (11.7-14.2); RDW Standard Deviation 45.8 fL (35.1-46.3); Red Blood Cell Count 2.41 M/mm3 (3.80-5.20); White Blood Cell Count 35.63 K/mm3 (4.00-11.30)
[2023-04-03 13:40] LABS: Red Blood Cells, Urine 0-2 /hpf (0-2); Squamous Epithelial Cells Mod /hpf (Few)
[2023-04-03 13:41] LABS: Bacteria Mod /hpf
[2023-04-03 13:42] LABS: Hyaline Casts 0-2 /lpf (0-2)
[2023-04-03 13:56] LABS: BAND PERCENT MAN 6 % (0-8); BASOPHILS ABSOLUTE MAN 0.35 K/mm3 (0.00-0.23); BASOPHILS PERCENT MAN 1 % (0-2); EOSINOPHILS PERCENT MAN 0 % (0-6); LYMPHOCYTES ABSOLUTE MAN 2.13 K/mm3 (0.84-5.20); LYMPHOCYTES PERCENT MAN 6 % (21-46); METAMYELOCYTE ABSOLUTE MAN 0.35 K/mm3 (0.00-0.00); METAMYELOCYTE PERCENT MAN 1 % (0-0); MONOCYTES ABSOLUTE MAN 0.71 K/mm3 (0.16-1.47); MONOCYTES PERCENT MAN 2 % (4-13); MYELOCYTE ABSOLUTE MAN 0.71 K/mm3 (0.00-0.00); MYELOCYTE PERCENT MAN 2 % (0-0); NEUTROPHILS ABSOLUTE MAN 31.35 K/mm3 (1.96-9.15); SEG NEUTROPHILS PERCENT MAN 82 % (41-73); TOTAL CELLS COUNTED 100
[2023-04-03 16:31] LABS: Hematocrit 18.9 % (33.0-51.0); Hemoglobin 6.7 g/dL (11.5-16.0); Mean Corpuscular HGB 32.1 pg (26.0-34.0); Mean Corpuscular HGB Conc 35.4 g/dL (31.5-36.5); Mean Corpuscular Volume 90 fL (80-100); Mean Platelet Volume 11.8 fL (9.1-12.4); NRBC ABSOLUTE 0.46 K/mm3 (0.00-0.02); NRBC Auto 1.4 /100 WBC (0.0-0.2); Platelet Count 286 K/mm3 (150-400); RDW Coefficient Variation 14.6 % (11.7-14.2); RDW Standard Deviation 46.7 fL (35.1-46.3); Red Blood Cell Count 2.09 M/mm3 (3.80-5.20); White Blood Cell Count 31.92 K/mm3 (4.00-11.30)
[2023-04-03 17:42] LABS: BAND PERCENT MAN 2 % (0-8); BASOPHILS PERCENT MAN 0 % (0-2); EOSINOPHILS PERCENT MAN 0 % (0-6); LYMPHOCYTES ABSOLUTE MAN 3.51 K/mm3 (0.84-5.20); LYMPHOCYTES PERCENT MAN 11 % (21-46); MONOCYTES ABSOLUTE MAN 1.27 K/mm3 (0.16-1.47); MONOCYTES PERCENT MAN 4 % (4-13); MYELOCYTE ABSOLUTE MAN 0.95 K/mm3 (0.00-0.00); MYELOCYTE PERCENT MAN 3 % (0-0); NEUTROPHILS ABSOLUTE MAN 26.17 K/mm3 (1.96-9.15); SEG NEUTROPHILS PERCENT MAN 80 % (41-73); TOTAL CELLS COUNTED 100
--- NOTE | 2023-04-03 19:00 | NUR ---
ASSUME CARE: ASHLEY Mullins and I have assumed care of this patient. During bedside shift report pt desaturated down to 77% SpO2 with paradoxical chest/abdominal movement. She was placed on 6L NC and moved to reverse trendelenburg. Day shift RN noted that surgery did not want pt to be placed on CPAP/BIPAP due to risk for gastric insufflation. This RN called Dr Parrish and reported concern regarding pt's respiratory status and pt's fatigue. RT called to set up for intubation.
--- NOTE | 2023-04-03 19:07 | NUR ---
SHIFT SUMMARY.... AT APROX 1600 THE PT'S BPs STARTED TO TREND DOWN, PT BECAME CONFUSED AND AGITATED, FAMILY SEEMED TO ADD/INCREASE THE AGITATION/ANXIETY WHILE IN THE ROOM. LEVOPHED WAS INCREASED TO KEEP MAPS>65 AND WAS QUICKLY MAXED OUT AT 20MCG/MIN TO KEEP MAPS>65. NEW ORDERS FOR BLOOD PRODUCTS WERE OBTAINED, THE [facility]SFUSION UNIT WAS USED AGAIN THIS AFTERNOON FOR PRBCs. PHOTOENGRAVING PHOTOGRAPHER WAS NOTIFIED OF THE PT'S DECLINE AND THE PT WAS TAKEN BACK TO PHOTOENGRAVING PHOTOGRAPHER AT 1715. THE PT RETURNED TO THE ROOM FROM THE PHOTOENGRAVING PHOTOGRAPHER AT 1836. REPORT GIVEN TO CHELSEA RAMIREZ.
--- NOTE | 2023-04-03 19:21 | NUR ---
INTUBATION: Family at bedside with Dr Parrish to consent for intubation. 1920: 20 mg propofol given; pt thrashing in bed and unable to stay flat 1923: 60mg propofol given 1924: 50 mg rocuronium given 1925: 7.5 ett 23 at teeth; positive breath sounds bilaterally 1925: 100 mcg of phenylephrine given 1926: levo restarted at 10 1936: ett advanced to 25 at teeth
--- NOTE | 2023-04-03 22:41 | NUR ---
PATIENT BELONGINGS: Pt's cell phone was at bedside before she was intubated. Cell phone has been placed in pt belongings bag with pt's purse. Pt belongings bags placed up in closet in room.
[2023-04-03 22:44] LABS: Mean Corpuscular HGB 30.6 pg (26.0-34.0); Mean Corpuscular HGB Conc 34.9 g/dL (31.5-36.5); Mean Corpuscular Volume 88 fL (80-100); Mean Platelet Volume 11.2 fL (9.1-12.4); NRBC ABSOLUTE 0.36 K/mm3 (0.00-0.02); NRBC Auto 1.6 /100 WBC (0.0-0.2); Platelet Count 236 K/mm3 (150-400); RDW Coefficient Variation 14.3 % (11.7-14.2); RDW Standard Deviation 45.4 fL (35.1-46.3); Red Blood Cell Count 1.93 M/mm3 (3.80-5.20); White Blood Cell Count 22.21 K/mm3 (4.00-11.30)
--- NOTE | 2023-04-03 23:04 | NUR ---
PATIENT'S DAUGHTER AND WERE PRESENT FOR EDUCATION MENTIONED IN THIS INTERVENTION AND EXHIBITED UNDERSTANDING. ALTHOUGH PT IS INTUBATED AND SEDATED, SHE IS STILL GIVEN VERBAL INSTRUCTION ON INTERVENTIONS THEY ARE BEING IMPLEMENTED.
[2023-04-03 23:10] LABS: Hemoglobin 5.9 g/dL (11.5-16.0)
[2023-04-03 23:11] LABS: Hematocrit 16.9 % (33.0-51.0)
[2023-04-03 23:26] LABS: International Normalized Ratio 1.32; Prothrombin Time Results 13.6 Sec (9.7-11.5)
[2023-04-03 23:33] LABS: Hemoglobin 5.8 g/dL (11.5-16.0)
[2023-04-03 23:34] LABS: Hematocrit 16.8 % (33.0-51.0)
[2023-04-04] VITALS (96 sets, daily range): BP systolic 82–171; BP diastolic 43–118
--- NOTE | 2023-04-04 05:51 | NUR ---
SHIFT SUMMARY PATIENT INTUBATED AND SEDATED THROUGH ENTIRETY OF SHIFT. SHE WOULD OCCASIONALLY OPEN HER EYES TO VERBAL STIMULI AND PRESSURE, AND WOULD OCCASIONALLY REACH FOR TUBES AND LINES. SWB IN PLACE. TMAX 100.1. MONITOR SHOWED SINUS RHYTHM/SINUS TACHY WITH HR IN 80'S-100'S. BP LABILE. INTUBATED ON 04/03/23 @ 1926. 7.5, 25 AT THE TEETH. A/C VC 15/500/5/35%. O2 SATURATIONS > 95%. SIGNIFICANT BLEEDING PER RECTUM. PT SOMEHOW REMOVED IRRIGATION PORT OF RECTAL TUBE WITH HER FEET WHILE KICKING; RECTAL TUBE REPLACED. TEMP PAZ IN PLACE DRAINING CLEAR YELLOW URINE TO GRAVITY. PT RECEIVED 2 UNITS PRBC'S AND HER SECOND ORDERED BAG OF FFP IS CURRENTLY INFUSING. PICC TO ALEXIS THAT FLUSHES BUT DOES NOT DRAW; PG TO MARITZA THAT DRAWS AND FLUSHES WELL. PROPOFOL CURRENTLY INFUSING AT 30MCG/KG/MIN, PROTONIX AT 10mL/HR, LEVOPHED ON SB. WILL CONTINUE TO MONITOR AND REPORT TO ONCOMING NURSE.
[2023-04-04 06:30] LABS: Hematocrit 19.3 % (33.0-51.0); Hemoglobin 6.8 g/dL (11.5-16.0); Mean Corpuscular HGB 29.6 pg (26.0-34.0); Mean Corpuscular HGB Conc 35.2 g/dL (31.5-36.5); Mean Corpuscular Volume 84 fL (80-100); Mean Platelet Volume 11.3 fL (9.1-12.4); NRBC ABSOLUTE 0.56 K/mm3 (0.00-0.02); NRBC Auto 2.5 /100 WBC (0.0-0.2); Platelet Count 201 K/mm3 (150-400); RDW Standard Deviation 44.6 fL (35.1-46.3); White Blood Cell Count 22.18 K/mm3 (4.00-11.30)
[2023-04-04 06:59] LABS: Albumin, Blood 2.1 g/dL (3.4-5.0); Albumin/Globulin Ratio 0.8 (0.8-1.8); Bilirubin, Direct 0.2 mg/dL (0.0-0.3); Bilirubin, Indirect 0.3 mg/dL (0.1-0.7); Bilirubin, Total 0.5 mg/dL (0.1-1.0); Bun/Creatinine Ratio 25.5 (12.0-20.0); Creatinine, Blood 1.49 mg/dL (0.40-1.00); Globulin, Blood 2.5 g/dL (2.2-4.0); Magnesium, Blood 1.7 mg/dL (1.6-2.4); Total Protein, Blood 4.6 g/dL (6.4-8.2)
--- NOTE | 2023-04-04 07:26 | NUR ---
ASSUMPTION OF CARE REPORT RECEIVED FROM NOC RN. PT RESTING IN BED. PT DOES NOT OPENS EYES BUT MOVES AROUND IN BED. HR 70'S SR, MAP > 65. INTUBATED AND SEDATED. PROPOFOL INFUSING AT 45MCG/KG. VENT SETTINGS AC/VC 15/500/5/35%, OXYGEN SATURATION > 92%, LUNG SOUNDS CLEAR. BOWEL TONES HYPOACTIVE, ABDOMEN SOFT TO PALAPATION. ABDOMINAL INCISIONS CLEAN, WNL. ACCESS SITE FROM ASSEMBLER FISHING FLOATS TO RIGHT GROIN WNL, NO BLOOD OR HEMATOMA FORMATION NOTED. NATIVIDAD DRAIN TO RLQ, YELLOW OUTPUT NOTED. 1 UNIT PRBC'S INFUSING. RECTAL TUBE IN PLACE, TEMP PAZ PATENT DRAINING TO GRAVITY.
[2023-04-04 12:59] LABS: BASOPHILS ABSOLUTE AUTO 0.06 K/mm3 (0.00-0.23); BASOPHILS PERCENT AUTO 0 % (0-2); EOSINOPHILS ABSOLUTE AUTO 0.02 K/mm3 (0.00-0.68); EOSINOPHILS PERCENT AUTO 0 % (0-6); Hematocrit 22.4 % (33.0-51.0); Hemoglobin 7.9 g/dL (11.5-16.0); IMMATURE GRAN ABSOLUTE AUTO 0.92 K/mm3 (0.00-0.10); IMMATURE GRAN PERCENT AUTO 5 % (0-1); LYMPHOCYTES ABSOLUTE AUTO 1.88 K/mm3 (0.84-5.20); LYMPHOCYTES PERCENT AUTO 10 % (21-46); MONOCYTES ABSOLUTE AUTO 0.96 K/mm3 (0.16-1.47); MONOCYTES PERCENT AUTO 5 % (4-13); Mean Corpuscular HGB 30.2 pg (26.0-34.0); Mean Corpuscular HGB Conc 35.3 g/dL (31.5-36.5); Mean Corpuscular Volume 86 fL (80-100); Mean Platelet Volume 11.2 fL (9.1-12.4); NEUTROPHILS ABSOLUTE AUTO 15.41 K/mm3 (1.96-9.15); NEUTROPHILS PERCENT AUTO 80 % (41-73); NRBC ABSOLUTE 0.59 K/mm3 (0.00-0.02); NRBC Auto 3.1 /100 WBC (0.0-0.2); Platelet Count 157 K/mm3 (150-400); RDW Coefficient Variation 14.8 % (11.7-14.2); RDW Standard Deviation 45.5 fL (35.1-46.3); Red Blood Cell Count 2.62 M/mm3 (3.80-5.20); White Blood Cell Count 19.25 K/mm3 (4.00-11.30)
[2023-04-04 13:32] LABS: International Normalized Ratio 1.21; Prothrombin Time Results 12.6 Sec (9.7-11.5)
--- NOTE | 2023-04-04 15:49 | NUR ---
Met with pt's daughter Karine at the bedside today. The pt remains on a ventilator to keep her calm and relaxes. However, Karine continues to speak loudly on the phone and ask questions of her mom, the patient who is currently unable to answer, but appears to be picking up on daughter's anxiety. The bedside RN gave lorazepam to pt today as she began vigorously shaking her head from side to side and attempting to flail arms. Pt's daughter Karine states she does understand that pt's situation is precarious at this time, and it isn't likely that transfering to another hospital would change the trajectory or outcome. Karine also states she prefers the pt stay here, regardless of the outcome. Will continue to encourage and provide emotional support for family.
--- NOTE | 2023-04-04 16:00 | NUR ---
"Spiritual Care | Family request Pt. is intubated and non responsive. Daughter, and Pts. parents are in the room. Facilitate a life review. Pts. mother verbalizes concern about the pts. standing before God. Pts. surgeon arrives and updates family present. Consider matters of nacho and belief. [place] for Pt. x2. Pts. NOK daughter Karine arrives. This clinic lead updates Karine. Family verbalizes gratitude for he spiritual care visit. This clinic lead will remain available to family."
[2023-04-04 16:17] LABS: Hematocrit 18.7 % (33.0-51.0); Hemoglobin 6.6 g/dL (11.5-16.0)
[2023-04-04 16:36] LABS: International Normalized Ratio 1.25
--- NOTE | 2023-04-04 17:41 | NUR ---
SHIFT SUMMARY PT RESTING IN BED, INTUBATED AND SEDATED, PROPOFOL INFUSING AT 50MCG/MIN. PT MOVES EXTREMITIES AND GRIMACES WITH NOXIOUS STIMULI. HR 70'S SR, MAP >65, LEVOPHED INFUSING AT 4MCG/MIN. PT HAS RECEIVED 2 UNITS PRBC THIS SHIFT AND 1 UNIT CRYO. VENTILATOR SETTINGS AC/VC 15/500/5/35%, OXYGEN SATURATION >95%. NATIVIDAD DRAIN TO RLQ, INCISIONS TO ABDOMEN CLEAN, WNL. ACCESS SITE TO RIGHT GROIN WNL, NO BLEEDING OR HEMATOMA FORMATION NOTED. TEMP PAZ IN PLACE PATENT DRAINING TO GRAVITY. RECTAL TUBE IN PLACE WITH 1400 OUT THIS SHIFT. PT HAD TWO LARGE LIQUID BLOODY STOOLS. FAMILY AT THE BEDSIDE.
--- NOTE | 2023-04-04 19:06 | NUR ---
ASSUMED CARE OF PATIENT AT 1900. REPORT RECEIVED FROM SHERRON RN AND ANIRUDH RN. FAMILY AT BESIDE. VSS AND NOT ACUTE NEEDS IDENTIFIED AT THIS TIME. SEE SHIFT ASSESSMENT FOR FULL ASSESSMENT DETAILS.
[2023-04-04 20:49] LABS: BASOPHILS ABSOLUTE AUTO 0.12 K/mm3 (0.00-0.23); BASOPHILS PERCENT AUTO 1 % (0-2); EOSINOPHILS ABSOLUTE AUTO 0.06 K/mm3 (0.00-0.68); EOSINOPHILS PERCENT AUTO 0 % (0-6); Hematocrit 25.9 % (33.0-51.0); Hemoglobin 8.9 g/dL (11.5-16.0); IMMATURE GRAN ABSOLUTE AUTO 1.35 K/mm3 (0.00-0.10); IMMATURE GRAN PERCENT AUTO 6 % (0-1); LYMPHOCYTES ABSOLUTE AUTO 2.85 K/mm3 (0.84-5.20); LYMPHOCYTES PERCENT AUTO 12 % (21-46); MONOCYTES ABSOLUTE AUTO 1.14 K/mm3 (0.16-1.47); MONOCYTES PERCENT AUTO 5 % (4-13); Mean Corpuscular HGB 29.1 pg (26.0-34.0); Mean Corpuscular HGB Conc 34.4 g/dL (31.5-36.5); Mean Corpuscular Volume 85 fL (80-100); Mean Platelet Volume 10.5 fL (9.1-12.4); NEUTROPHILS ABSOLUTE AUTO 17.63 K/mm3 (1.96-9.15); NEUTROPHILS PERCENT AUTO 76 % (41-73); NRBC ABSOLUTE 1.04 K/mm3 (0.00-0.02); NRBC Auto 4.5 /100 WBC (0.0-0.2); Platelet Count 171 K/mm3 (150-400); RDW Coefficient Variation 14.7 % (11.7-14.2); RDW Standard Deviation 45.1 fL (35.1-46.3); Red Blood Cell Count 3.06 M/mm3 (3.80-5.20); White Blood Cell Count 23.15 K/mm3 (4.00-11.30)
[2023-04-04 22:59] LABS: BASOPHILS ABSOLUTE AUTO 0.11 K/mm3 (0.00-0.23); BASOPHILS PERCENT AUTO 1 % (0-2); EOSINOPHILS ABSOLUTE AUTO 0.05 K/mm3 (0.00-0.68); EOSINOPHILS PERCENT AUTO 0 % (0-6); Hematocrit 26.7 % (33.0-51.0); Hemoglobin 9.3 g/dL (11.5-16.0); IMMATURE GRAN ABSOLUTE AUTO 1.25 K/mm3 (0.00-0.10); IMMATURE GRAN PERCENT AUTO 5 % (0-1); LYMPHOCYTES ABSOLUTE AUTO 2.68 K/mm3 (0.84-5.20); LYMPHOCYTES PERCENT AUTO 11 % (21-46); MONOCYTES ABSOLUTE AUTO 1.13 K/mm3 (0.16-1.47); MONOCYTES PERCENT AUTO 5 % (4-13); Mean Corpuscular HGB 29.7 pg (26.0-34.0); Mean Corpuscular HGB Conc 34.8 g/dL (31.5-36.5); Mean Corpuscular Volume 85 fL (80-100); Mean Platelet Volume 10.8 fL (9.1-12.4); NEUTROPHILS ABSOLUTE AUTO 18.57 K/mm3 (1.96-9.15); NEUTROPHILS PERCENT AUTO 78 % (41-73); NRBC ABSOLUTE 1.18 K/mm3 (0.00-0.02); Platelet Count 180 K/mm3 (150-400); Red Blood Cell Count 3.13 M/mm3 (3.80-5.20); White Blood Cell Count 23.79 K/mm3 (4.00-11.30)
[2023-04-04 23:19] LABS: International Normalized Ratio 1.14; Prothrombin Time Results 11.9 Sec (9.7-11.5)
[2023-04-05] VITALS (85 sets, daily range): BP systolic 01–1176; BP diastolic 44–89
[2023-04-05 04:36] LABS: BASOPHILS PERCENT AUTO 0 % (0-2); EOSINOPHILS ABSOLUTE AUTO 0.08 K/mm3 (0.00-0.68); EOSINOPHILS PERCENT AUTO 0 % (0-6); Hematocrit 22.6 % (33.0-51.0); Hemoglobin 8.1 g/dL (11.5-16.0); IMMATURE GRAN ABSOLUTE AUTO 1.09 K/mm3 (0.00-0.10); IMMATURE GRAN PERCENT AUTO 5 % (0-1); LYMPHOCYTES ABSOLUTE AUTO 2.33 K/mm3 (0.84-5.20); LYMPHOCYTES PERCENT AUTO 10 % (21-46); MONOCYTES PERCENT AUTO 5 % (4-13); Mean Corpuscular HGB 30.2 pg (26.0-34.0); Mean Corpuscular HGB Conc 35.8 g/dL (31.5-36.5); Mean Corpuscular Volume 84 fL (80-100); Mean Platelet Volume 10.6 fL (9.1-12.4); NEUTROPHILS ABSOLUTE AUTO 17.94 K/mm3 (1.96-9.15); NEUTROPHILS PERCENT AUTO 79 % (41-73); NRBC ABSOLUTE 1.45 K/mm3 (0.00-0.02); NRBC Auto 6.4 /100 WBC (0.0-0.2); Platelet Count 214 K/mm3 (150-400); RDW Coefficient Variation 15.2 % (11.7-14.2); Red Blood Cell Count 2.68 M/mm3 (3.80-5.20); White Blood Cell Count 22.74 K/mm3 (4.00-11.30)
[2023-04-05 04:55] LABS: Bun/Creatinine Ratio 28.2 (12.0-20.0); Calcium, Blood 7.6 mg/dL (8.5-10.1); Creatinine, Blood 1.17 mg/dL (0.40-1.00); Potassium, Blood 3.6 mmol/L (3.5-5.5)
[2023-04-05 05:06] LABS: International Normalized Ratio 1.11; Prothrombin Time Results 11.6 Sec (9.7-11.5)
--- NOTE | 2023-04-05 05:31 | NUR ---
SHIFT SUMMARY PATIENT REMAINED INTUBATED AND SEDATED THROUGHOUT ENTIRETY OF SHIFT. PURPOSEFUL MOVEMENTS ARE BECOMING STRONGER. SHE OCCASIONALLY MOVES TO VERBAL AND NOXIOUS STIMULI. MONITOR SHOWED SINUS RHYTHM WITH HR IN 80'S-100'S. BP LABILE. A/C VC - SETTINGS 15/500/5/35%. SATURATIONS >95%. NO SIGNIFICANT BLEEDING PER RECTUM THIS SHIFT. RECTAL TUBE OUTPUT OF 200mL. TEMP PAZ IN PLACE DRAINING DARK YELLOW URINE TO GRAVITY. 4X ABDOMINAL INCISIONS STILL APPEAR WNL. PG TO MARITZA THAT DRAWS AND FLUSHES WELL, PICC TO ALEXIS INFUSING PROPOFOL AT 50 MCG/KG/MIN, LEVOPHED AT 3MCG/MIN, PROTONIX AT 10mL/HR. WILL CONTINUE TO MONITOR AND REPORT TO ONCOMING NURSE.
--- NOTE | 2023-04-05 07:00 | NUR ---
ASSUMPTION OF CARE: ASSUMED CARE OF PATIENT WITH LESLIE APPIAH RN. PATIENT RESTING QUIETLY IN BED. VENT SETTINGS AC/VC 15/500/5/35%. SPO2 98-100%. BREATHS ARE EVEN AND REGULAR. 7.5CM SIZE EET WITH 25 AT THE TEETH. SBPS IN THE 100S TO 110S. HR IN THE 70-80S. LEVOPHED AT 3 MCG/MIN. PROPOFOL AT 50 MCG/KG/MIN. PATIENT WITHDRAWS EXTREMITIES TO NOXIOUS STIMULI. NOT RESPONDING TO VERBAL STIMULI. RECTAL TUBE IN PLACE WITH DARK, RED LIQUID IN COLLECTION BAG. CATHETER IN PLACE AND DRAINING FREELY. URINE IS LIGHT YELLOW IN COLOR.
--- NOTE | 2023-04-05 10:36 | NUR ---
Spiritual Care Visit. Pt. is intubated and non responsive. Daughter is a bedside and welcomes my visit. Facilitated a life review of Pt. and clarified the Pts. supportive relationships. Considered matters of nacho and belief and how it is reflected in the family dynamic. Pts. spouse arrives mid-visit. Prayed for Pt. and family at bedside. Daughter and spouse both verbalized gratitude forthe spiritual care visit, and welcomed this family lawyer to return.
[2023-04-05 11:25] LABS: Hematocrit 20.4 % (33.0-51.0); Hemoglobin 7.2 g/dL (11.5-16.0); Mean Corpuscular HGB Conc 35.3 g/dL (31.5-36.5); Mean Corpuscular Volume 85 fL (80-100); Mean Platelet Volume 10.7 fL (9.1-12.4); NRBC ABSOLUTE 1.65 K/mm3 (0.00-0.02); NRBC Auto 7.5 /100 WBC (0.0-0.2); Platelet Count 209 K/mm3 (150-400); RDW Coefficient Variation 15.7 % (11.7-14.2); RDW Standard Deviation 47.3 fL (35.1-46.3); White Blood Cell Count 22.03 K/mm3 (4.00-11.30)
[2023-04-05 12:27] LABS: International Normalized Ratio 1.08; Prothrombin Time Results 11.3 Sec (9.7-11.5)
--- NOTE | 2023-04-05 13:43 | NUR ---
Pt on weaning trial family at lunch after meeting with chaplian. Pt noted to have large bloody stool in bed. pt kps score is 30%. Review withchaplian they are talking as a family. Advised nursing to ask phsycian to speak to with them. Left them with the hard choices books and will follow up with family pt would benefit from comfort care for dignity and symptom management.
[2023-04-05 14:00] LABS: BAND PERCENT MAN 5 % (0-8); BASOPHILS PERCENT MAN 0 % (0-2); EOSINOPHILS ABSOLUTE MAN 0.22 K/mm3 (0.00-0.68); EOSINOPHILS PERCENT MAN 1 % (0-6); LYMPHOCYTES ABSOLUTE MAN 2.42 K/mm3 (0.84-5.20); LYMPHOCYTES PERCENT MAN 11 % (21-46); METAMYELOCYTE ABSOLUTE MAN 0.22 K/mm3 (0.00-0.00); METAMYELOCYTE PERCENT MAN 1 % (0-0); MONOCYTES ABSOLUTE MAN 0.88 K/mm3 (0.16-1.47); MONOCYTES PERCENT MAN 4 % (4-13); MYELOCYTE ABSOLUTE MAN 0.44 K/mm3 (0.00-0.00); MYELOCYTE PERCENT MAN 2 % (0-0); NEUTROPHILS ABSOLUTE MAN 17.84 K/mm3 (1.96-9.15); SEG NEUTROPHILS PERCENT MAN 76 % (41-73); TOTAL CELLS COUNTED 100
[2023-04-05 18:11] LABS: BASOPHILS ABSOLUTE AUTO 0.07 K/mm3 (0.00-0.23); BASOPHILS PERCENT AUTO 0 % (0-2); EOSINOPHILS ABSOLUTE AUTO 0.15 K/mm3 (0.00-0.68); EOSINOPHILS PERCENT AUTO 1 % (0-6); Hematocrit 20.5 % (33.0-51.0); Hemoglobin 7.1 g/dL (11.5-16.0); IMMATURE GRAN ABSOLUTE AUTO 0.77 K/mm3 (0.00-0.10); IMMATURE GRAN PERCENT AUTO 4 % (0-1); LYMPHOCYTES PERCENT AUTO 11 % (21-46); MONOCYTES ABSOLUTE AUTO 0.78 K/mm3 (0.16-1.47); MONOCYTES PERCENT AUTO 4 % (4-13); Mean Corpuscular HGB 30.1 pg (26.0-34.0); Mean Corpuscular HGB Conc 34.6 g/dL (31.5-36.5); Mean Corpuscular Volume 87 fL (80-100); Mean Platelet Volume 10.8 fL (9.1-12.4); NEUTROPHILS ABSOLUTE AUTO 14.14 K/mm3 (1.96-9.15); NEUTROPHILS PERCENT AUTO 79 % (41-73); NRBC ABSOLUTE 1.18 K/mm3 (0.00-0.02); NRBC Auto 6.6 /100 WBC (0.0-0.2); Platelet Count 175 K/mm3 (150-400); RDW Standard Deviation 49.2 fL (35.1-46.3); Red Blood Cell Count 2.36 M/mm3 (3.80-5.20); White Blood Cell Count 17.81 K/mm3 (4.00-11.30)
[2023-04-05 18:27] LABS: International Normalized Ratio 1.09; Prothrombin Time Results 11.4 Sec (9.7-11.5)
--- NOTE | 2023-04-05 18:40 | NUR ---
Call placed to Dr Limon. Noted that pre-transfusion hemoglobin was 7.2 and post transfusion hemoglobin was 7.1. Patient has had 250 mL new bowel output into rectal tube as well as two large bowel movements that leaked from rectum. All bowel movements have been melena with some batool blood, unchanged in appearance from drainage in bag at beginning of shift. Orders given for one unit PRBC. Next recheck is scheduled for 2299.
--- NOTE | 2023-04-05 18:49 | NUR ---
SHIFT SUMMARY: NEURO: PATIENT CONTINUES TO BE SEDATED ON 50 MCG/KG/MIN PROPOFOL. PATIENT WITHDREW EXTREMITIES IN RESPONSE TO NOXIOUS STIMULI AT NAIL BEDS. NO CORNEAL RESPONSE NOTED. PUPILS ARE SLUGGISH IN RESPONSE TO LIGHT. DURING SEDATION INTERRUPTION, NO PURPOSEFUL MOVEMENT NOTED. PATIENT TURNING HEAD SIDE TO SIDE, BUT DID NOT RESPOND TO VERBAL STIMULI OR FOLLOW DIRECTIONS. MEDICATED FOR AGITATION AND PAIN WITH PRN MEDCIATIONS. CARDIAC: DURING THE SHIFT, PATIENT CONTINUED TO REQUIRE LEVOPHED GTT FOR HEMODYNAMIC SUPPORT. PATIENT STARTED THE SHIFT AT 3 MCG/MIN. ABLE TO TITRATE PATIENT DOWN TO 2 MCG/MIN. PATIENT FAILED FURTHER TITRATION TO 1 MCG/MIN. SBPS IN THE HIGH 90S TO 100S. (DURING ADMINISTRATION OF PRBCS, SBP UP INTO THE 130S-140S.) HR IN THE MID 60S-LOW 80S. RESPIRATORY: PATIENT REMAINS ON AC/VC VENT SETTINGS AT 15/500/5/30%. LUNG SOUNDS REMAINED CLEAR THROUGHOUT. BREATHING EVEN AND REGULAR. SPO2 98-100%. ETT AT 7.5 CM WITH 25 AT THE TEETH. [place], WHITE, THICK SPUTUM IN SUCTION TUBING. MUSCULOSKELETAL: MINIMAL MOVEMENT NOTED IN EXTREMITIES WITH PAIN OR AGITATION. GI: PATIENT CONTINUES TO HAVE DARK RED OUTPUT IN THE RECTAL TUBE. DURING THE SHIFT, PATIENT HAD A LARGE DARK RED LIQUID WITH MELENA BOWEL MOVEMENT THAT LEAKED AROUND THE RECTAL TUBE. NO FOUL ODOR NOTED. : PAZ IN PLACE AND DRAINING FREELY. URINE OUTPUT IS DARK YELLOW. NO SEDIMENT OR CLOUDINESS NOTED. PSYCHSOCIAL: FAMILY AT BEDSIDE THROUGHOUT THE SHIFT. KEPT FAMILY UP TO DATE WITH PLAN OF CARE AND PATIENT STATUS. FAMILY IS EXPERIENCING ANXIETY AND SADNESS. TODAY, EDGAR (DAUGHTER) EXPRESSED THAT SHE WASN'T SURE "WHEN ENOUGH WAS ENOUGH". ENCOURAGED FAMILY TO SPEAK WITH EACH OTHER ABOUT WHAT THE PATIENT'S PREFERENCES WOULD BE. PROVIDED SUPPORT AND ENCOURAGEMENT.
--- NOTE | 2023-04-05 21:15 | NUR ---
ASSUMED CARE ASSUMED CARE AT 1900. PT INTUBATED AND SEDATED. AC/VC 15/500/5/30%. RR 15-18. PROPOFOL, LEVOPHED, PROTONIX, ZOSYN AND CPN GTT INFUSING. SEE FLOWSHEET FOR TITRATIONS. DOES NOT OPEN EYES, OR MAKE PURPOSEFUL MOVEMENTS. WILL WITHDRAW EXTREMITIES TO NOXIOUS STIMULI. GRIMACES WITH ORAL CARE BUT DOES NOT PULL BACK OR MOVE HEAD. BLOOD TRANSFUSION STARTED WITH DAY SHIFT RN. D/T MEDICATION INCOMPATIBILITY AND LINE AVAILABILITY, CPN STOPPED AND PIV PLACEMENT ATTEMPTED TO TRANSFUSE BLOOD. UNABLE TO PLACE PIV WITH ULTRASOUND. PT HAS PICC IN ALEXIS, AND POWERGLIDE IN MARITZA. CPN STOPPED FOR DURATION OF BLOOD TRANSFUSION. VSS. SR RATE 60'S. BLOOD PRESSURE INCREASED WITH BLOOD TRANSFUSION, SBP 120'S. PAZ PATENT AND DRAINING TO GRAVITY. RECTAL TUBE DRAINING RED/BLACK LIQUID STOOL.
[2023-04-05 23:39] LABS: BASOPHILS ABSOLUTE AUTO 0.09 K/mm3 (0.00-0.23); BASOPHILS PERCENT AUTO 1 % (0-2); EOSINOPHILS ABSOLUTE AUTO 0.21 K/mm3 (0.00-0.68); EOSINOPHILS PERCENT AUTO 1 % (0-6); Hematocrit 24.4 % (33.0-51.0); Hemoglobin 8.3 g/dL (11.5-16.0); IMMATURE GRAN ABSOLUTE AUTO 0.88 K/mm3 (0.00-0.10); IMMATURE GRAN PERCENT AUTO 5 % (0-1); LYMPHOCYTES ABSOLUTE AUTO 2.41 K/mm3 (0.84-5.20); LYMPHOCYTES PERCENT AUTO 13 % (21-46); MONOCYTES ABSOLUTE AUTO 0.81 K/mm3 (0.16-1.47); MONOCYTES PERCENT AUTO 4 % (4-13); Mean Corpuscular HGB 29.7 pg (26.0-34.0); Mean Corpuscular Volume 88 fL (80-100); Mean Platelet Volume 10.8 fL (9.1-12.4); NEUTROPHILS ABSOLUTE AUTO 14.01 K/mm3 (1.96-9.15); NEUTROPHILS PERCENT AUTO 76 % (41-73); NRBC ABSOLUTE 1.11 K/mm3 (0.00-0.02); Platelet Count 174 K/mm3 (150-400); RDW Coefficient Variation 16.3 % (11.7-14.2); RDW Standard Deviation 50.4 fL (35.1-46.3); Red Blood Cell Count 2.79 M/mm3 (3.80-5.20); White Blood Cell Count 18.41 K/mm3 (4.00-11.30)
[2023-04-05 23:55] LABS: International Normalized Ratio 1.05
[2023-04-06] VITALS (90 sets, daily range): BP systolic 89–170; BP diastolic 48–98
[2023-04-06 04:34] LABS: BASOPHILS ABSOLUTE AUTO 0.08 K/mm3 (0.00-0.23); BASOPHILS PERCENT AUTO 1 % (0-2); EOSINOPHILS ABSOLUTE AUTO 0.23 K/mm3 (0.00-0.68); EOSINOPHILS PERCENT AUTO 1 % (0-6); Hematocrit 23.6 % (33.0-51.0); Hemoglobin 8.1 g/dL (11.5-16.0); IMMATURE GRAN ABSOLUTE AUTO 0.81 K/mm3 (0.00-0.10); IMMATURE GRAN PERCENT AUTO 5 % (0-1); LYMPHOCYTES ABSOLUTE AUTO 1.84 K/mm3 (0.84-5.20); LYMPHOCYTES PERCENT AUTO 11 % (21-46); MONOCYTES ABSOLUTE AUTO 0.82 K/mm3 (0.16-1.47); MONOCYTES PERCENT AUTO 5 % (4-13); Mean Corpuscular HGB 29.9 pg (26.0-34.0); Mean Corpuscular HGB Conc 34.3 g/dL (31.5-36.5); Mean Corpuscular Volume 87 fL (80-100); Mean Platelet Volume 11.1 fL (9.1-12.4); NEUTROPHILS ABSOLUTE AUTO 13.51 K/mm3 (1.96-9.15); NEUTROPHILS PERCENT AUTO 78 % (41-73); NRBC Auto 4.6 /100 WBC (0.0-0.2); Platelet Count 166 K/mm3 (150-400); RDW Coefficient Variation 16.7 % (11.7-14.2); RDW Standard Deviation 51.4 fL (35.1-46.3); Red Blood Cell Count 2.71 M/mm3 (3.80-5.20); White Blood Cell Count 17.29 K/mm3 (4.00-11.30)
[2023-04-06 04:38] LABS: PCO2 Arterial 32.8 mmHg (35-45); PO2 Arterial 67.9 mmHg (80-100); pH Blood Arterial 7.48 (7.35-7.45)
[2023-04-06 04:49] LABS: International Normalized Ratio 1.03; Prothrombin Time Results 10.8 Sec (9.7-11.5)
[2023-04-06 04:52] LABS: Albumin, Blood 1.6 g/dL (3.4-5.0); Albumin/Globulin Ratio 0.6 (0.8-1.8); Bilirubin, Total 0.3 mg/dL (0.1-1.0); Bun/Creatinine Ratio 26.2 (12.0-20.0); Calcium, Blood 7.4 mg/dL (8.5-10.1); Creatinine, Blood 1.03 mg/dL (0.40-1.00); Globulin, Blood 2.6 g/dL (2.2-4.0); Magnesium, Blood 1.9 mg/dL (1.6-2.4); Phosphorus, Blood 1.7 mg/dL (2.5-4.9); Potassium, Blood 3.6 mmol/L (3.5-5.5); Total Protein, Blood 4.2 g/dL (6.4-8.2)
--- NOTE | 2023-04-06 05:51 | NUR ---
SHIFT SUMMARY NO ACUTE EVENTS T/O NIGHT. PT REMAINS INTUBATED AND SEDATED. NO VENT SETTING CHANGES. PROPOFOL, PROTONIX, AND CPN GTTS INFUSING. LEVOPHED GTT OFF AT 0000. VSS. SR/SB 50-60'S WITH MORE PVC'S THIS AM. AFTER ONE UNIT OF PRBC, HEMOGLOBIN STABLE AT RECHECKS. PAZ PATENT AND DRAINING TO GRAVITY. NATIVIDDA TO RUQ. RECTAL TUBE WITH RED/BLACK STOOL 700ML OUTPUT TOTAL. DAUGHTER AT BEDSIDE MOST OF THE NIGHT. WILL REPORT OFF TO DAY RN.
--- NOTE | 2023-04-06 07:00 | NUR ---
ASSUMPTION OF CARE: ASSUMED CARE OF PATIENT WITH ASHLEY NG. PATIENT RESTING IN BED WITH DAUGHTER EDGAR AT BEDSIDE. ETT 7.5CM SIZE, PLACEMENT 25 CM AT TEETH. VENT SETTINGS AC/VC 15/500/5/30%. RESPIRATIONS 15-18. BREATHS ARE EVEN AND UNLABORED. SPO2 98-100%. SPBS IN THE 130S-140S. MAPS >65. HR IN THE 70S. PATIENT WITHDRAWS FROM NOXIOUS STIMULI IN ALL 4 EXTREMITIES. CORNEAL RESPONSE IS PRESENT THIS MORNING. PATIENT APPEARS COMFORTABLE, WILL MINIMAL MOVMENTS AT TIMES. PROPOFOL GTT AT 50 MCG/KG/HR. TPN AT 65. CONTINUOUS PROTONIX GTT AT 10. REPLACEMENT FOR PHOSPHATES STARTED. URINE OUTPUT IS A LIGHT YELLOW. RECTAL COLLECTION BAG HAS DARK RED OUTPUT IN IT. THE TUBING HAS LESS OUTPUT IN IT THAN YESTERDAY. NO LEAKAGE FROM AROUND THE INSERTION NOTED AT THIS TIME.
--- NOTE | 2023-04-06 11:02 | NUR ---
SEDATION INTERRUPTION: PROPOFOL GTT PUT ON STANDBY AT 08:55. VENT SETTINGS TO SPONTANEOUS WITH PRESSURE CONTROL 10/5/30%. PATIENT MOVING LIMBS, PULLING AT RESTRAINTS AND MOVING HEAD SIDE TO SIDE. PATIENT UNABLE TO FOLLOW COMMANDS THROUGHOUT TRIAL. PATIENT BECAME INCREASINGLY AGITATED. HR TACHY. TRIGEMENY NOTED. PRECEDEX GTT INITIATED AND TITRATED UP TO 0.7 MCG/KG/MIN. PATIENT ALSO MEDICATED FOR PAIN WITH 50 MCG OF IV FENTANYL. PATIENT CONTINUED TO BE RESTLESS AND AGITATED. HR INTO THE 120S AND CONSISTENT TRIGEMENY NOTED. TRANSITIONED PATIENT BACK TO PROPOFOL GTT. DR. GILLIS NOTIFIED. PLAN IS TO ATTEMPT TO TRANSITION PATIENT BACK TO PRECEDEX WHILE TITRATING PROPOFOL DOWN.
[2023-04-06 16:07] LABS: BASOPHILS ABSOLUTE AUTO 0.07 K/mm3 (0.00-0.23); BASOPHILS PERCENT AUTO 0 % (0-2); EOSINOPHILS ABSOLUTE AUTO 0.19 K/mm3 (0.00-0.68); EOSINOPHILS PERCENT AUTO 1 % (0-6); Hematocrit 21.2 % (33.0-51.0); Hemoglobin 7.2 g/dL (11.5-16.0); IMMATURE GRAN ABSOLUTE AUTO 0.77 K/mm3 (0.00-0.10); IMMATURE GRAN PERCENT AUTO 4 % (0-1); LYMPHOCYTES PERCENT AUTO 11 % (21-46); MONOCYTES ABSOLUTE AUTO 0.91 K/mm3 (0.16-1.47); MONOCYTES PERCENT AUTO 5 % (4-13); Mean Corpuscular HGB 29.9 pg (26.0-34.0); Mean Corpuscular Volume 88 fL (80-100); Mean Platelet Volume 11.2 fL (9.1-12.4); NEUTROPHILS ABSOLUTE AUTO 14.27 K/mm3 (1.96-9.15); NEUTROPHILS PERCENT AUTO 79 % (41-73); NRBC ABSOLUTE 0.69 K/mm3 (0.00-0.02); NRBC Auto 3.8 /100 WBC (0.0-0.2); Platelet Count 178 K/mm3 (150-400); RDW Coefficient Variation 16.9 % (11.7-14.2); Red Blood Cell Count 2.41 M/mm3 (3.80-5.20); White Blood Cell Count 18.11 K/mm3 (4.00-11.30)
[2023-04-06 16:50] LABS: Phosphorus, Blood 2.5 mg/dL (2.5-4.9); Potassium, Blood 3.9 mmol/L (3.5-5.5)
--- NOTE | 2023-04-06 17:59 | NUR ---
SHIFT SUMMARY: NEURO: PATIENT CONTINUES TO WITHDRAW ALL 4 EXTREMITIES TO NOXIOUS STIMULI. CORNEAL REFLEX PRESENT TODAY. DURING SEDATION INTERRUPTION AND THROUGHOUT THE DAY, NO PURPOSEFUL MOVEMENT NOTED. PATIENT DID NOT FOLLOW COMMANDS OR REPEAT ACTION UPON REQUEST. FAMILY REPORTS THAT THEY ARE SEEING THE PATIENT RESPOND. UNABLE TO TRANSITION PATIENT FROM PROPOFOL TO PRECEDEX DURING SEDATION INTERRUPTION TODAY. PATIENT ENDED THE SHIFT ON 20 MCG/KG/MIN PROPOFOL. CARDIAC: LEVOPHED STAYED ON STANDBY THROUGHOUT THE SHIFT. SBP IN THE 100S-140S. WITH PAIN, AGITATION, AND STIMULI, SBP INTO THE 150S. DURING HIGH LEVELS OF PAIN/AGITATION, SUCH DURING THE END OF THE SEDATION INTERRUPTION AND SBT, PATIENT HAS TACHYCARDIA INTO THE 120S WITH PVCS. HR DECREASES QUICKLY WITH ADMINISTRATION OF PAIN MEDIATIONS AND TITRATION OF PROPOFOL. MAPS >65 RESPIRATORY: PATIENT ABLE TO MAINTAIN VENT SETTINGS OF SPONTANEOUS WITH PRESSURE SUPPORT 10/5/30%. RESPIRATIONS 16-26. WITH AGITATION/PAIN, RR UP TO 40. RESPIRATIONS RESPONSIVE TO REPOSITIONING AND PAIN MEDICATIONS. LUNG SOUNDS CLEAR THROUGHOUT SHIFT. THC, WHITE, YELLOW SPUTUM IN SUCTION TUBING. GI: CONTINUES TO HAVE DARK LIQUID OUTPUT IN RECTAL COLLECTION CHAMBER. CHANGE TO THE COLOR NOTED. THERE IS AN INCREASED BROWN TINT. MINIMAL LEAKAGE AROUND RECTAL TUBE TODAY. NO NAUSEA NOTED. ABDOMEN STAYS SOFT WITH HYPOACTIVE BOWEL TONES. TPN CONTINUES AT 65 MLS/HR. : PATIENT RESPONDED WELL TO AM LASIX, PRODUCING AN INCREASED AMOUNT OF VERY LIGHT YELLOW URINE. BPS STABLE THROUGHOUT THE DAY. MUSCULOSKELETAL: PATIENT MOVES LIMBS INDEPENDENTLY WITH AGITATION. PSYCHSOCIAL: FAMILY CONTINUES TO BE SUPPORTIVE AND AT BEDSIDE THROUGHOUT THE DAY. DAUGHTER EDGAR AT BEDSIDE THROUGHOUT THE NIGHT. FAMILY CAN CAUSE INCREASED STIMULATION FOR THE PATIENT AT TIMES. ENCOURAGED CALM PRESENCE. FAMILY IS INCREASINGLY ASKING HOW LONG SHOULD WE GIVE THE PATIENT A CHANCE OF RECOVERING. THEY REMAIN HOPEFUL AND ANXIOUS.
[2023-04-07] VITALS (97 sets, daily range): BP systolic 97–181; BP diastolic 46–121
--- NOTE | 2023-04-07 00:22 | NUR ---
ASSUMED CARE ASSUMED CARE AT 1900. PT INTUBATED AND SEDATED. SWITCHED FROM PS TO AC/VC 15/500/5/30% APPROX 1914. SEE RT DOCUMENTATION. PT RESTLESS IN BED, MOVING LEGS OFF BED, SHIFTING SELF DOWN IN BED, AND MOVED HEAD [id number]. PROPOFOL GTT INFUSING. SEE FLOWSHEET. TPN INFUSING. FENTANYL GIVEN PER EMAR. DURING PAIN/AGITATION SBP INCREASED TO 150-160'S. PRBC INFUSION STARTED APPROX 1914. PLAN TO RECHECK H/H WITH AM LABS. OTHER VSS. PAZ PATENT AND DRAINING TO GRAVITY. RECTAL TUBE IN PLACE WITH GREEN/BLACK/RED OUTPUT. DAUGHTER AT BEDSIDE.
[2023-04-07 03:45] LABS: BASOPHILS ABSOLUTE AUTO 0.05 K/mm3 (0.00-0.23); BASOPHILS PERCENT AUTO 0 % (0-2); EOSINOPHILS ABSOLUTE AUTO 0.22 K/mm3 (0.00-0.68); EOSINOPHILS PERCENT AUTO 1 % (0-6); Hematocrit 20.6 % (33.0-51.0); Hemoglobin 6.7 g/dL (11.5-16.0); IMMATURE GRAN ABSOLUTE AUTO 0.74 K/mm3 (0.00-0.10); IMMATURE GRAN PERCENT AUTO 5 % (0-1); LYMPHOCYTES ABSOLUTE AUTO 2.01 K/mm3 (0.84-5.20); LYMPHOCYTES PERCENT AUTO 13 % (21-46); MONOCYTES ABSOLUTE AUTO 0.99 K/mm3 (0.16-1.47); MONOCYTES PERCENT AUTO 7 % (4-13); Mean Corpuscular HGB 28.4 pg (26.0-34.0); Mean Corpuscular HGB Conc 32.5 g/dL (31.5-36.5); Mean Corpuscular Volume 87 fL (80-100); Mean Platelet Volume 11.3 fL (9.1-12.4); NEUTROPHILS ABSOLUTE AUTO 11.22 K/mm3 (1.96-9.15); NEUTROPHILS PERCENT AUTO 74 % (41-73); NRBC ABSOLUTE 0.36 K/mm3 (0.00-0.02); NRBC Auto 2.4 /100 WBC (0.0-0.2); Platelet Count 179 K/mm3 (150-400); RDW Coefficient Variation 18.7 % (11.7-14.2); RDW Standard Deviation 56.4 fL (35.1-46.3); Red Blood Cell Count 2.36 M/mm3 (3.80-5.20); White Blood Cell Count 15.23 K/mm3 (4.00-11.30)
[2023-04-07 04:00] LABS: Anion Gap 4 mmol/L (6-16); Blood Urea Nitrogen 28 mg/dL (8-24); Bun/Creatinine Ratio 32.2 (12.0-20.0); CO2, Blood 25 mmol/L (21-32); Calcium, Blood 7.7 mg/dL (8.5-10.1); Chloride, Blood 124 mmol/L (98-108); Creatinine, Blood 0.87 mg/dL (0.40-1.00); Glomerular Filtration Rate 72 (60-); Glucose, Blood 168 mg/dL (70-99); Magnesium, Blood 1.9 mg/dL (1.6-2.4); Potassium, Blood 3.8 mmol/L (3.5-5.5); Sodium, Blood 153 mmol/L (136-145); Triglycerides 315 mg/dL (30-160)
--- NOTE | 2023-04-07 06:24 | NUR ---
SHIFT SUMMARY NO ACUTE EVENTS T/O NIGHT. PT REMAINS INTUBATED AND SEDATED. NO VENT SETTING CHANGES. PROPOFOL AND TPN INFUSING. PT VERY RESTLESS T/O NIGHT. THROWING LEGS OFF BED, MOVING DOWN IN BED, MOVING HEAD BACK AND FORTH, SHRUGGING SHOULDERS AND PULLING AGAINST RESTRAINTS. NO PURPOSEFUL MOVEMENT NOTED. DOES NOT FOLLOW COMMANDS. SBP INCREASED TO 150-160'S DURING AGITATION, 100-120'S WHEN CALM. MEDICATED PER EMAR. HOSP CALLED REGARDING MORNING HEMOGLOBIN. ORDER FOR ONE UNIT PRBC. CURRENTLY INFUSING. OTHER VSS. PAZ PATENT AND DRAINING TO GRAVITY. RECTAL TUBE IN PLACE. [place] DRAIN TO RUQ. DAUGHTER AT BEDSIDE T/O NIGHT. DISCUSSED POC AND DAUGHTER EXPRESSES "I DON'T KNOW HOW MUCH LONGER WE SHOULD DO THIS". DISCUSSED BENEFITS OF FAMILY MEETING WITH PROVIDER, DAUGHTER AGREEABLE AND WILL PASS ON TO DAY RN.
--- NOTE | 2023-04-07 08:10 | NUR ---
INITIAL ASSESSMENT PATIENT INTUBATED AND ON SEDATION. PATIENT RESPONDING TO NOXIOUS STIMULI, NURSING CARE, ORAL CARE WITH MOVEMENT OF EXTREMITIES AND GRIMACING OF FACE. PATIENT RESTLESS IN BED. PATIENT AFEBRILE. PATIENT UNABLE TO FOLLOW ANY SIMPLE COMMANDS AT THIS TIME. PATIENT AFEBRILE. PATIENT ON ACVC 15, TV 500, PEEP 5 AND 30% FIO2. LUNGS CLEAR IN UPPER LOBES AND DIM IN LOWER LOBES. OCCASIONAL COUGH. NO SPUTUM NOTED WITH ETT SUCTIONING. PATIENT IN SR, HR IN THE 70S. SBP 150S TO 160S. PATIENT EDEMATOUS. SCDS IN PLACE. ABD SOFT WITH HYPOACTIVE BOWEL SOUNDS. RECTAL TUBE DRAINING BLACK, GREEN LIQUID STOOL. PAZ DRAINING YELLOW COLORED URINE. [place]AD DRAIN TO RUQ DRAINING MINIMAL AMOUNT OF SEROUS FLUID. EX LAPS SITE TO STOMACH. SCATTERED BRUISES NOTED. R FEM PREVIOUS ACCESS SITE. TPN INFUSING AT 65 MLS/ HOUR. PROPOFOL AT 45 MCG/ KG/ MINUTE. BED LOW, CALL LIGHT IN REACH. DAUGHTERS AT BEDSIDE.
[2023-04-07 10:29] LABS: Hemoglobin 7.2 g/dL (11.5-16.0)
--- NOTE | 2023-04-07 12:00 | NUR ---
PATIENT AFEBRILE. HR IN THE 70S. SBP IN THE 140S. PRECEDEX AT 0.7 MCG/ KG/ HOUR AND PROPOFOL AT 30 MCG/ KG/ MINUTE. BLOOD SUGAR OF 154. CARE CONTINUES.
--- NOTE | 2023-04-07 16:40 | NUR ---
PATIENT AFEBRILE. HR IN THE 70S. SBP IN THE 160S. PATIENT ON SPONTANEOUS PRESSURE SUPPORT 10/5, 30% FIO2. FAMILY AT BEDSIDE. CARE CONTINUES.
[2023-04-07 16:46] LABS: Hematocrit 25.1 % (33.0-51.0); Hemoglobin 8.2 g/dL (11.5-16.0)
--- NOTE | 2023-04-07 18:55 | NUR ---
SHIFT SUMMARY PATIENT REMAINED INTUBATED. PATIENT REMAINED MOSTLY ON SEDATION BUT DID HAVE SEDATION VACATION THIS SHIFT. PATIENT WAS ABLE TO SQUEEZE HANDS (WEAKLY) WHEN ASKED AND WIGGLE HER RIGHT TOE. PATIENT WAS NOT ABLE TO FOLLOW COMMANDS LONG BECAME RESTLESS, AGITATED, RR 50S, SBP 180S, PULLING AT RESTRAINTS. PATIENT PLACED ON PRECEDEX ALONG WITH PROPOFOL TO HELP WITH SEDATION. PATIENT RECEIVED PRN FENTANYL FREQUENTLY FOR SIGNS OF DISCOMFORT. PATIENT EITHER ON ACVC 15, TV 500M PEEP 5 AND 30% FIO2 OR SPONTANEOUS PRESSURE SUPPORT OF 10/5 AND 30% FIO2. PATIENT SR TO ST, HR 50S TO LOW 100S. PATIENT BRADYCARDIC AFTER PRECEDEX STARTED AND SLEEPING SOUNDLY. 200 MLS OF BROWN/ GREEN, LIQUID STOOL OUT FROM RECTAL TUBE THIS SHIFT. 2975 MLS OF YELLOW URINE DRAINED FROM PAZ. 20 MG IV LASIX GIVEN THIS SHIFT AND ORDERED BID. NO CHANGES TO SKIN NOTED. TPN REMAINS AT 65 MLS/ HOUR. PRECEDEX AT 0.5 MCG/ KG/ HOUR. PROPOFOL AT 35 MCG/ KG/ MINUTE. PATIENT RECEIVED 1 UNITS PRBCS THIS SHIFT. HGB UP FROM 7.2 TO 8.2. 2200 H&H ORDERED. PATIENT RECEIVED 30 MM KPHOS FOR PHOS OF 2.0 THIS AM. PATIENT RECEIVED COMPLETE BED BATH. FAMILY AT BEDSIDE ALL SHIFT. BED LOW, CALL LIGHT IN REACH. REPORT GIVEN TO ASSUMING CUSTOM SHOEMAKER NURSE.
[2023-04-07 22:17] LABS: Hematocrit 25.7 % (33.0-51.0); Hemoglobin 8.5 g/dL (11.5-16.0)
[2023-04-07 23:55] LABS: Bun/Creatinine Ratio 27.4 (12.0-20.0); Calcium, Blood 7.9 mg/dL (8.5-10.1); Creatinine, Blood 0.91 mg/dL (0.40-1.00); Magnesium, Blood 1.9 mg/dL (1.6-2.4); Phosphorus, Blood 2.7 mg/dL (2.5-4.9); Potassium, Blood 3.8 mmol/L (3.5-5.5)
[2023-04-08] VITALS (72 sets, daily range): BP systolic 81–176; BP diastolic 44–111
[2023-04-08 03:37] LABS: Hemoglobin 8.6 g/dL (11.5-16.0); Mean Corpuscular HGB 29.4 pg (26.0-34.0); Mean Corpuscular HGB Conc 33.1 g/dL (31.5-36.5); Mean Corpuscular Volume 89 fL (80-100); NRBC ABSOLUTE 0.11 K/mm3 (0.00-0.02); NRBC Auto 0.8 /100 WBC (0.0-0.2); RDW Coefficient Variation 18.8 % (11.7-14.2); RDW Standard Deviation 55.8 fL (35.1-46.3); Red Blood Cell Count 2.93 M/mm3 (3.80-5.20); White Blood Cell Count 13.34 K/mm3 (4.00-11.30)
[2023-04-08 03:39] LABS: Mean Platelet Volume 11.2 fL (9.1-12.4); Platelet Count 198 K/mm3 (150-400)
[2023-04-08 03:57] LABS: Alanine Aminotransfer (ALT/SGP 110 U/L (12-78); Albumin, Blood 1.7 g/dL (3.4-5.0); Albumin/Globulin Ratio 0.5 (0.8-1.8); Alk Phos 75 U/L (50-136); Anion Gap 6 mmol/L (6-16); Aspartate Aminotrans (AST/SGOT 48 U/L (12-37); Bilirubin, Total 0.2 mg/dL (0.1-1.0); Blood Urea Nitrogen 24 mg/dL (8-24); Bun/Creatinine Ratio 28.1 (12.0-20.0); CO2, Blood 24 mmol/L (21-32); Calcium, Blood 8.1 mg/dL (8.5-10.1); Chloride, Blood 118 mmol/L (98-108); Creatinine, Blood 0.85 mg/dL (0.40-1.00); Globulin, Blood 3.7 g/dL (2.2-4.0); Glomerular Filtration Rate 74 (60-); Glucose, Blood 172 mg/dL (70-99); Magnesium, Blood 1.9 mg/dL (1.6-2.4); Phosphorus, Blood 2.3 mg/dL (2.5-4.9); Potassium, Blood 3.8 mmol/L (3.5-5.5); Sodium, Blood 148 mmol/L (136-145); Total Protein, Blood 5.4 g/dL (6.4-8.2); Triglycerides 344 mg/dL (30-160)
[2023-04-08 04:00] LABS: BAND PERCENT MAN 7 % (0-8); BASOPHILS PERCENT MAN 0 % (0-2); EOSINOPHILS ABSOLUTE MAN 0.13 K/mm3 (0.00-0.68); EOSINOPHILS PERCENT MAN 1 % (0-6); LYMPHOCYTES PERCENT MAN 18 % (21-46); METAMYELOCYTE ABSOLUTE MAN 0.13 K/mm3 (0.00-0.00); METAMYELOCYTE PERCENT MAN 1 % (0-0); MONOCYTES ABSOLUTE MAN 0.53 K/mm3 (0.16-1.47); MONOCYTES PERCENT MAN 4 % (4-13); MYELOCYTE ABSOLUTE MAN 0.13 K/mm3 (0.00-0.00); MYELOCYTE PERCENT MAN 1 % (0-0); SEG NEUTROPHILS PERCENT MAN 68 % (41-73); TOTAL CELLS COUNTED 100
--- NOTE | 2023-04-08 06:17 | NUR ---
SHIFT SUMMARY PT INTUBATED AND SEDATED. PT CHANGED FROM PS 10/5 30% TO AC/VC 15/500/5/30% APPROX 2330. RR 15-30. PROPOFOL, PRECEDEX AND TPN GTT INFUSING. SEE FLOWSHEET FOR TITRATIONS. PT BRADYCARDIAC AT TIMES AND PRECEDEX TITRATED TO SB MULTIPLE TIMES. WHEN OFF PT RESTLESS, MOVING ALL EXTREMITIES, OPENING EYES, AND PULLING AGAINST RESTRAINTS. DID NOT FOLLOW COMMANDS. PRECEDEX THEN TURNED BACK ON HR WOULD BE 60-70'S. SR/SB. INCREASED PVC/PJC'S WITH STIMULATION. OTHER VSS. PG AND PICC SLUGGISH TO DRAW THIS AM. UNABLE TO OBTAIN COAGS D/T CLOTTING. NATIVIDAD TO RUQ. MINIMAL OUTPUT. PAZ PATENT AND DRAINING TO GRAVITY. RECTAL TUBE WITH DARK GREEN/BLACK OUTPUT. DAUGHTER EDGAR AT BEDSIDE T/O NIGHT. PLAN FOR FAMILY MEETING TODAY. WILL REPORT OFF TO ONCOMING RN.
[2023-04-08 08:04] LABS: International Normalized Ratio 0.96; Prothrombin Time Results 10.1 Sec (9.7-11.5)
--- NOTE | 2023-04-08 11:40 | NUR ---
SHIFT ASSESSMENT ASSUMED CARE OF PT @ 0700, BEDSIDE REPORT RECEIVED FROM GURDEEP RN. PT INITIALLY INTUBATED AND SEDATED. QUICKLY DECREASED SEDATION AND PLACED PT ON SPONTANEOUS. PT TOLERATED WELL, ABLE TO FOLLOW COMMANDS. EXTUBATED PT @ 1000 TO 2LPM O2 VIA NC c O2 SATS >90%. PT HAS WEAK COUGH WITH SCANT SECRETIONS. REMAINS NPO, WILL HAVE ST EVALUATE TOMORROW. RECTAL TUBE REMOVED. PAZ CATH REMAINS IN FOR STRICT I'S & O'S, DRAINING YELLOW URINE. NATIVIDAD DRAIN c SCANT OUTPUT. DR CLARK IN ROOM THIS AM TO DISCUSS PLAN WITH FAMILY, HE WAS ALSO UPDATED OF EXTUBATION.
[2023-04-08 15:47] LABS: Hematocrit 23.1 % (33.0-51.0); Hemoglobin 7.5 g/dL (11.5-16.0)
--- NOTE | 2023-04-08 18:21 | NUR ---
SHIFT SUMMARY PT ALERT AND ORIENTED TO PERSON, PLACE AND YEAR. FOLLOWING COMMANDS, GIOVANNA, REMAINS VERY WEAK. HAS MOMENTS OF CONFUSION BUT IS REDIRECTABLE. COUGH STRONGER c SCANT MUCOUS OUT. REMAINS ON 2-3LPM O2 VIA NC c SATS >90%. PT C/O BACK PAIN AND ANXIETY. MEDICATED MULTIPLE TIMES WITH PRN FENTANYL AND ATIVAN WITH ADEQUATE PAIN RELIEF. CONTINUES TO C/O ANXIETY SHORTLY AFTER ATIVAN ADMIN. PT STATING SHE NEEDS TO LEAVE AND TRYING TO GET OUT OF BED. DR GILLIS CONTACTED, STARTED PRECEDEX AT LOW DOSE BUT PT BECAME HYPOTENSIVE. CURRENTLY PRECEDEX IS OFF AND PT RESTING COMFORTABLY ON LEFT SIDE. THIS AFTERNOON OUTPUT FROM RECTAL TUBE INCREASING, FILLED UP ONE BAG (1L), SMALL AMNT OF BLOOD LEAKED AROUND RECTAL TUBE. STOOL IN COLLECTION BAG IS BLACK. PAZ CATH DRAINING REY URINE. FAMILY AT BEDSIDE T/O DAY, VERY ENGAGING WITH PT. DISCUSSED THE NECESSITY FOR PT TO REST. FAMILY RECEPTIVE BUT INSIST AT STAYING AT BEDSIDE.
--- NOTE | 2023-04-08 19:15 | NUR ---
ASSUMPTION OF CARE PT IS AWAKE, ORIENTED X3. SPEECH IS SLOW AND SOFT, EXTUBATED EARLIER TODAY. SHE IS ON 2L NC, OXYGEN SAT 96% AT THE CURRENT TIME. SHE IS TACHYPNIC W/SHALLOW RESPIRATIONS BUT IN NO DISTRESS NOR HAS ANY COMPLAINTS OF FEELING SHORT OF BREATH. SHE IS SR ON THE RIDE OPERATOR W/PVC AT TIMES. BP IS WNL. SHE CAN HEREDIA BUT IS VERY WEAK. SHE ALSO HAS A VERY WEAK,CONGESTED, NON PRODUCTIVE COUGH. SHE IS ABLE TO MAKE NEEDS KNOWN. PT IS QUITE RESTLESS AND WAS REPOSITIONED FOR COMFORT. WAS OFFERED WARM BLANKETS,SOCKS,FAN,COLD WASHCLOTH NONE OF WHICH MADE HER FEEL MORE COMFORTABLE PER PT. WILL MEDICATE HER ACCORDING TO MD ORDERS. PT IS AFIBRILE. RECTAL TUBE IS INTACT DRAINING BLACK STOOL. PAZ CATH INTACT DRAINING YELLOW URINE.
--- NOTE | 2023-04-08 21:29 | NUR ---
PT'S DAUGHTERS CALLED TO CHECK ON PT CONDITION. UPDATED THEM ON PT CURRENT STATUS AND PLAN OF CARE OVERNIGHT. FAMILY VOICED APPRECIATION FOR CARE GIVEN
[2023-04-08 21:58] LABS: Hematocrit 21.6 % (33.0-51.0)
--- NOTE | 2023-04-08 22:25 | NUR ---
PT H&H AT [address] GILLIS. PT IS HYPOTENSIVE AFTER RECEIVING LASIX, NOTIFED. ORDERS GIVEN TO D/C LASIX AND MONITOR BP FOR NOW. IF AM HEMOGLOBIN IS LESS THAN 7, TRANSFUSE 1 UNIT PRBC PER MD ORDER.
[2023-04-09] VITALS (17 sets, daily range): BP systolic 80–115; BP diastolic 45–54
[2023-04-09 05:34] LABS: Hemoglobin 6.4 g/dL (11.5-16.0); Mean Corpuscular HGB 29.4 pg (26.0-34.0); Mean Corpuscular Volume 92 fL (80-100); NRBC Auto 0.8 /100 WBC (0.0-0.2); Platelet Count 263 K/mm3 (150-400); RDW Coefficient Variation 19.5 % (11.7-14.2); RDW Standard Deviation 57.9 fL (35.1-46.3); Red Blood Cell Count 2.18 M/mm3 (3.80-5.20); White Blood Cell Count 12.48 K/mm3 (4.00-11.30)
[2023-04-09 05:59] LABS: BAND PERCENT MAN 3 % (0-8); BASOPHILS PERCENT MAN 0 % (0-2); EOSINOPHILS ABSOLUTE MAN 0.37 K/mm3 (0.00-0.68); EOSINOPHILS PERCENT MAN 3 % (0-6); LYMPHOCYTES ABSOLUTE MAN 1.74 K/mm3 (0.84-5.20); LYMPHOCYTES PERCENT MAN 14 % (21-46); METAMYELOCYTE ABSOLUTE MAN 0.49 K/mm3 (0.00-0.00); METAMYELOCYTE PERCENT MAN 4 % (0-0); MONOCYTES ABSOLUTE MAN 0.49 K/mm3 (0.16-1.47); MONOCYTES PERCENT MAN 4 % (4-13); NEUTROPHILS ABSOLUTE MAN 9.36 K/mm3 (1.96-9.15); SEG NEUTROPHILS PERCENT MAN 72 % (41-73); TOTAL CELLS COUNTED 100
[2023-04-09 06:05] LABS: Albumin, Blood 1.7 g/dL (3.4-5.0); Albumin/Globulin Ratio 0.5 (0.8-1.8); Bilirubin, Total 0.2 mg/dL (0.1-1.0); Bun/Creatinine Ratio 39.7 (12.0-20.0); Calcium, Blood 8.3 mg/dL (8.5-10.1); Creatinine, Blood 0.86 mg/dL (0.40-1.00); Globulin, Blood 3.7 g/dL (2.2-4.0); Magnesium, Blood 1.9 mg/dL (1.6-2.4); Phosphorus, Blood 2.7 mg/dL (2.5-4.9); Potassium, Blood 3.9 mmol/L (3.5-5.5); Total Protein, Blood 5.4 g/dL (6.4-8.2)
--- NOTE | 2023-04-09 11:07 | NUR ---
Spiritual Care Visit Attempted. Pt. is awake in bed when this locker attendant arrives. Pt. displays evidence of distress. This locker attendant asked one of the nurses to assist the Pt. with suction. Will continue to monitor, and will visit when Pts. duaghters and/or spouse are present.
[2023-04-09 11:56] LABS: Hematocrit 23.6 % (33.0-51.0); Hemoglobin 7.7 g/dL (11.5-16.0)
[2023-04-09 12:13] LABS: International Normalized Ratio 0.98; Prothrombin Time Results 10.3 Sec (9.7-11.5)
--- NOTE | 2023-04-09 14:08 | NUR ---
"Spiritual Care | Spouse support. Met with Spouse as the REACH team was prepping the Pt. for transport. Pastoral financial aid counselor is given. Spouse verbalized gratitude for the spiritual care support."
== END 2023-04-09 14:25 | disposition short-term general hospital (02) | DRG 853 ==
LOC: ER 11:40 → ICUE 20:59 → PCU 20:59 → MEDS 03-25 16:25 → ICUE 03-26 23:00 → PCU 04-01 23:24 → ICUE 04-02 22:05
PROVIDERS: Family Medicine; Internal Medicine; Internal Medicine Critical Care Medicine; Nurse Practitioner Acute Care; Physician Assistant; Student in an Organized Health Care Education/Training Program; Surgery; ADMIT Student in an Organized Health Care Education/Training Program
PROC: 3E033XZ Introduction of Vasopressor into Peripheral Vein, Percutaneous Approach (ICD-10-PCS; 2023-03-22)
PROC: 3E03329 Introduction of Other Anti-infective into Peripheral Vein, Percutaneous Approach (ICD-10-PCS; 2023-03-22)
PROC: 0DU947Z Supplement Duodenum with Autologous Tissue Substitute, Percutaneous Endoscopic Approach (ICD-10-PCS; principal; 2023-03-27)
PROC: 30233N1 Transfusion of Nonautologous Red Blood Cells into Peripheral Vein, Percutaneous Approach (ICD-10-PCS; 2023-03-27)
PROC: 5A0945A Assistance with Respiratory Ventilation, 24-96 Consecutive Hours, High Flow/Velocity Cannula (ICD-10-PCS; 2023-03-27)
PROC: 0W9F4ZX Drainage of Abdominal Wall, Percutaneous Endoscopic Approach, Diagnostic (ICD-10-PCS; 2023-03-27)
PROC: 0DB98ZX Excision of Duodenum, Via Natural or Artificial Opening Endoscopic, Diagnostic (ICD-10-PCS; 2023-03-27)
PROC: 8E0W8CZ Robotic Assisted Procedure of Trunk Region, Via Natural or Artificial Opening Endoscopic (ICD-10-PCS; 2023-03-27)
PROC: 0BH17EZ Insertion of Endotracheal Airway into Trachea, Via Natural or Artificial Opening (ICD-10-PCS; 2023-04-03)
PROC: 04V53DZ Restriction of Superior Mesenteric Artery with Intraluminal Device, Percutaneous Approach (ICD-10-PCS; 2023-04-03)
PROC: 0DH67UZ Insertion of Feeding Device into Stomach, Via Natural or Artificial Opening (ICD-10-PCS; 2023-04-03)
PROC: 04V33DZ Restriction of Hepatic Artery with Intraluminal Device, Percutaneous Approach (ICD-10-PCS; 2023-04-03)
PROC: 5A1945Z Respiratory Ventilation, 24-96 Consecutive Hours (ICD-10-PCS; 2023-04-04)
PROC: 4A133R1 Monitoring of Arterial Saturation, Peripheral, Percutaneous Approach (ICD-10-PCS; 2023-04-06)
PROC: 02HV33Z Insertion of Infusion Device into Superior Vena Cava, Percutaneous Approach (ICD-10-PCS; 2023-04-06)
DX: A41.51 Sepsis due to Escherichia coli [E. coli] (principal); E43 Unspecified severe protein-calorie malnutrition; G92.8 Other toxic encephalopathy; K26.2 Acute duodenal ulcer with both hemorrhage and perforation; I63.9 Cerebral infarction, unspecified; J96.01 Acute respiratory failure with hypoxia; R57.1 Hypovolemic shock; K65.1 Peritoneal abscess; J18.9 Pneumonia, unspecified organism; R65.21 Severe sepsis with septic shock; N13.6 Pyonephrosis; N17.9 Acute kidney failure, unspecified; D62 Acute posthemorrhagic anemia; E87.20 Acidosis, unspecified; J90 Pleural effusion, not elsewhere classified; J98.11 Atelectasis; E87.1 Hypo-osmolality and hyponatremia; R18.8 Other ascites; B95.1 Streptococcus, group B, as the cause of diseases classified elsewhere; I25.10 Atherosclerotic heart disease of native coronary artery without angina pectoris; J98.6 Disorders of diaphragm; E78.1 Pure hyperglyceridemia; F41.9 Anxiety disorder, unspecified; E11.22 Type 2 diabetes mellitus with diabetic chronic kidney disease; I12.9 Hypertensive chronic kidney disease with stage 1 through stage 4 chronic kidney disease, or unspecified chronic kidney disease; E55.9 Vitamin D deficiency, unspecified; E86.0 Dehydration; N18.31 Chronic kidney disease, stage 3a; E11.51 Type 2 diabetes mellitus with diabetic peripheral angiopathy without gangrene; E87.6 Hypokalemia; N20.0 Calculus of kidney; E66.3 Overweight; E88.09 Other disorders of plasma-protein metabolism, not elsewhere classified; D63.1 Anemia in chronic kidney disease; M54.9 Dorsalgia, unspecified; G89.29 Other chronic pain; Z88.2 Allergy status to sulfonamides; Z88.8 Allergy status to other drugs, medicaments and biological substances; Z79.84 Long term (current) use of oral hypoglycemic drugs; Z79.82 Long term (current) use of aspirin; Z79.899 Other long term (current) drug therapy; Z87.891 Personal history of nicotine dependence; Z90.710 Acquired absence of both cervix and uterus; Z95.1 Presence of aortocoronary bypass graft; Z98.890 Other specified postprocedural states; Z68.31 Body mass index [BMI] 31.0-31.9, adult
CPT/HCPCS: 31500; 36245; 36247; 36248; 36415; 36430; 36569; 36600; 37244; 51702; 70450; 70496; 70498; 71045; 74174; 74177; 74240; 75726; 75774; 76770; 76937; 80048; 80053; 80069; 80076; 81001; 82330; 82803; 82947; 83605; 83690; 83735; 83880; 84100; 84132; 84478; 84484; 85014; 85018; 85025; 85027; 85384; 85610; 85730; 86850; 86900; 86901; 86923; 87040; 87077; 87086; 87147; 87186; 88305; 93005; 93010; 94002; 94003; 94640; 94664; 94667; 94668; 94762; 96361; 96365-59; 96375-59; 96376-59; 97110; 97110-CQ; 97116; 97162; 97164; 97166; 97530; 97535; 99152; 99153; 99285-25; A9270; C1751; C1760; C1769; C1887; C1894; C9113; J0153; J0612; J0696; J0780; J1100; J1170; J1450; J1644; J1885; J1940; J2060; J2250; J2371; J2405; J2543; J2704; J2765; J2997; J3010; J3411; J3475; J3480; J7030; J7050; J7060; J7120; P9012; P9016; P9035; P9059; Q2036; Q9967

== ENCOUNTER → 2023-04-25 | Outpatient (CLI) | payer OTHER ==
[~2023-04-25] MED LIST changes: +LOSA25 PO; +NORVASC10 MG PO
[2023-04-25 15:59] LABS: BASOPHILS ABSOLUTE AUTO 0.06 K/mm3 (0.00-0.23); BASOPHILS PERCENT AUTO 1 % (0-2); EOSINOPHILS ABSOLUTE AUTO 0.07 K/mm3 (0.00-0.68); EOSINOPHILS PERCENT AUTO 1 % (0-6); Hematocrit 34.6 % (33.0-51.0); Hemoglobin 10.8 g/dL (11.5-16.0); IMMATURE GRAN ABSOLUTE AUTO 0.02 K/mm3 (0.00-0.10); IMMATURE GRAN PERCENT AUTO 0 % (0-1); LYMPHOCYTES ABSOLUTE AUTO 2.38 K/mm3 (0.84-5.20); LYMPHOCYTES PERCENT AUTO 27 % (21-46); MONOCYTES ABSOLUTE AUTO 0.98 K/mm3 (0.16-1.47); MONOCYTES PERCENT AUTO 11 % (4-13); Mean Corpuscular HGB 30.1 pg (26.0-34.0); Mean Corpuscular HGB Conc 31.2 g/dL (31.5-36.5); Mean Corpuscular Volume 96 fL (80-100); Mean Platelet Volume 9.6 fL (9.1-12.4); NEUTROPHILS ABSOLUTE AUTO 5.22 K/mm3 (1.96-9.15); NEUTROPHILS PERCENT AUTO 60 % (41-73); Platelet Count 396 K/mm3 (150-400); RDW Coefficient Variation 18.6 % (11.7-14.2); RDW Standard Deviation 66.6 fL (35.1-46.3); Red Blood Cell Count 3.59 M/mm3 (3.80-5.20); White Blood Cell Count 8.73 K/mm3 (4.00-11.30)
== END | disposition home or self-care (01) ==
LOC: LAB 13:00 → LAB SHORT 13:00
PROVIDERS: Family Medicine
DX: Z48.815 Encounter for surgical aftercare following surgery on the digestive system (principal); K26.2 Acute duodenal ulcer with both hemorrhage and perforation
CPT/HCPCS: 85025

== ENCOUNTER → 2023-04-29 | Outpatient (CLI) | payer OTHER | LOC: LAB SHORT 13:46 → LAB 13:46 | DX: K26.9 Duodenal ulcer, unspecified as acute or chronic, without hemorrhage or perforation (principal) | CPT/HCPCS: 87338 ==

== ENCOUNTER → 2023-04-30 | Outpatient (CLI) | payer OTHER ==
[2023-04-30 16:04] LABS: BASOPHILS ABSOLUTE AUTO 0.04 K/mm3 (0.00-0.23); BASOPHILS PERCENT AUTO 0 % (0-2); EOSINOPHILS ABSOLUTE AUTO 0.08 K/mm3 (0.00-0.68); EOSINOPHILS PERCENT AUTO 1 % (0-6); Hematocrit 35.3 % (33.0-51.0); Hemoglobin 10.9 g/dL (11.5-16.0); IMMATURE GRAN ABSOLUTE AUTO 0.03 K/mm3 (0.00-0.10); IMMATURE GRAN PERCENT AUTO 0 % (0-1); LYMPHOCYTES ABSOLUTE AUTO 2.52 K/mm3 (0.84-5.20); LYMPHOCYTES PERCENT AUTO 27 % (21-46); MONOCYTES ABSOLUTE AUTO 0.78 K/mm3 (0.16-1.47); MONOCYTES PERCENT AUTO 8 % (4-13); Mean Corpuscular HGB 30.2 pg (26.0-34.0); Mean Corpuscular HGB Conc 30.9 g/dL (31.5-36.5); Mean Corpuscular Volume 98 fL (80-100); Mean Platelet Volume 9.7 fL (9.1-12.4); NEUTROPHILS ABSOLUTE AUTO 5.95 K/mm3 (1.96-9.15); NEUTROPHILS PERCENT AUTO 63 % (41-73); Platelet Count 353 K/mm3 (150-400); RDW Standard Deviation 64.9 fL (35.1-46.3); Red Blood Cell Count 3.61 M/mm3 (3.80-5.20)
[2023-04-30 17:30] LABS: Calcium, Blood 9.7 mg/dL (8.5-10.1); Creatinine, Blood 0.85 mg/dL (0.40-1.00); Potassium, Blood 4.4 mmol/L (3.5-5.5)
== END | disposition home or self-care (01) ==
LOC: LAB SHORT 12:50 → LAB 12:50
PROVIDERS: Family Medicine
DX: K26.2 Acute duodenal ulcer with both hemorrhage and perforation (principal)
CPT/HCPCS: 80048; 82728; 85025; 85060

== ENCOUNTER → 2023-05-13 | Outpatient (CLI) | payer OTHER ==
[2023-05-13 13:17] LABS: BASOPHILS ABSOLUTE AUTO 0.05 K/mm3 (0.00-0.23); BASOPHILS PERCENT AUTO 1 % (0-2); EOSINOPHILS ABSOLUTE AUTO 0.07 K/mm3 (0.00-0.68); EOSINOPHILS PERCENT AUTO 1 % (0-6); Hematocrit 34.7 % (33.0-51.0); Hemoglobin 11.1 g/dL (11.5-16.0); IMMATURE GRAN ABSOLUTE AUTO 0.02 K/mm3 (0.00-0.10); IMMATURE GRAN PERCENT AUTO 0 % (0-1); LYMPHOCYTES ABSOLUTE AUTO 2.56 K/mm3 (0.84-5.20); LYMPHOCYTES PERCENT AUTO 28 % (21-46); MONOCYTES ABSOLUTE AUTO 0.65 K/mm3 (0.16-1.47); MONOCYTES PERCENT AUTO 7 % (4-13); Mean Corpuscular HGB 30.5 pg (26.0-34.0); Mean Corpuscular Volume 95 fL (80-100); Mean Platelet Volume 9.7 fL (9.1-12.4); NEUTROPHILS ABSOLUTE AUTO 5.68 K/mm3 (1.96-9.15); NEUTROPHILS PERCENT AUTO 63 % (41-73); Platelet Count 440 K/mm3 (150-400); RDW Coefficient Variation 16.6 % (11.7-14.2); RDW Standard Deviation 58.3 fL (35.1-46.3); Red Blood Cell Count 3.64 M/mm3 (3.80-5.20); White Blood Cell Count 9.03 K/mm3 (4.00-11.30)
== END ==
LOC: LAB SHORT 11:00 → LAB 11:00
PROVIDERS: Family Medicine
DX: K26.2 Acute duodenal ulcer with both hemorrhage and perforation (principal); Z48.815 Encounter for surgical aftercare following surgery on the digestive system
CPT/HCPCS: 85025

== ENCOUNTER 2024-08-13 09:32 | Day surgery (SDC) | payer OTHER ==
[~2024-08-13] VITALS: Ht 170.2 cm; Wt 93.4 kg
[2024-08-13] MEDS ORDERED: OMEP20ER PO (10:10)
[2024-08-13] MEDS ORDERED: ALDACTONE25 MG (10:11)
[2024-08-13] MEDS ORDERED: Lactated Ringer's 1,000 ML IV ONE (11:22)
[2024-08-13] MEDS ORDERED: propofoL 50 ML IV ONE (11:29)
[2024-08-13 12:22] VITALS: BP 110/60
== END 2024-08-13 12:12 | disposition home or self-care (01) ==
LOC: ORSCSDS 09:32
PROVIDERS: Surgery
PROC: 0DB68ZX Excision of Stomach, Via Natural or Artificial Opening Endoscopic, Diagnostic (ICD-10-PCS; principal; 2024-08-13 11:00)
DX: R11.0 Nausea (principal); Z87.11 Personal history of peptic ulcer disease; K44.9 Diaphragmatic hernia without obstruction or gangrene; K59.00 Constipation, unspecified; I25.10 Atherosclerotic heart disease of native coronary artery without angina pectoris; I12.9 Hypertensive chronic kidney disease with stage 1 through stage 4 chronic kidney disease, or unspecified chronic kidney disease; E11.22 Type 2 diabetes mellitus with diabetic chronic kidney disease; N18.30 Chronic kidney disease, stage 3 unspecified; I63.9 Cerebral infarction, unspecified; E78.5 Hyperlipidemia, unspecified; F41.9 Anxiety disorder, unspecified; Z86.73 Personal history of transient ischemic attack (TIA), and cerebral infarction without residual deficits; Z87.891 Personal history of nicotine dependence; Z79.84 Long term (current) use of oral hypoglycemic drugs; Z79.899 Other long term (current) drug therapy
CPT/HCPCS: 82947; 88305; 88342; J2704

== ENCOUNTER 2025-04-15 10:26 | Emergency (ER) | payer OTHER ==
[~2025-04-15] VITALS: Ht 170.2 cm; Wt 93.0 kg
[~2025-04-15 10:26] MED LIST changes: +ALDACTONE25 MG; +OMEP20ER PO
[2025-04-15] MEDS ORDERED: Diltiazem HCl 5 MG / ML 5ML Vial IV ONE (10:35)
[2025-04-15] MEDS ORDERED: NS 1,000 ML IV ONE (10:52)
[2025-04-15] MEDS ORDERED: NS 1,000 ML IV SCH (10:55)
[2025-04-15 11:11] LABS: BASOPHILS ABSOLUTE AUTO 0.09 K/mm3 (0.00-0.23); BASOPHILS PERCENT AUTO 1 % (0-2); EOSINOPHILS ABSOLUTE AUTO 0.09 K/mm3 (0.00-0.68); EOSINOPHILS PERCENT AUTO 1 % (0-6); Hematocrit 42.8 % (33.0-51.0); Hemoglobin 14.5 g/dL (11.5-16.0); IMMATURE GRAN ABSOLUTE AUTO 0.05 K/mm3 (0.00-0.10); IMMATURE GRAN PERCENT AUTO 0 % (0-1); LYMPHOCYTES ABSOLUTE AUTO 4.55 K/mm3 (0.84-5.20); LYMPHOCYTES PERCENT AUTO 40 % (21-46); MONOCYTES ABSOLUTE AUTO 1.08 K/mm3 (0.16-1.47); MONOCYTES PERCENT AUTO 10 % (4-13); Mean Corpuscular HGB Conc 33.9 g/dL (31.5-36.5); Mean Corpuscular Volume 96 fL (80-100); NEUTROPHILS ABSOLUTE AUTO 5.47 K/mm3 (1.96-9.15); NEUTROPHILS PERCENT AUTO 48 % (41-73); NRBC ABSOLUTE 0.00 K/mm3 (0.00-0.02); NRBC Auto 0.0 /100 WBC (0.0-0.2); RDW Coefficient Variation 12.8 % (11.7-14.2); RDW Standard Deviation 44.6 fL (35.1-46.3)
[2025-04-15 11:37] LABS: Platelet Count 318 K/mm3 (150-400)
[2025-04-15 11:47] LABS: Anion Gap 13.0 mmol/L (3-11); Blood Urea Nitrogen 31.0 mg/dL (8-24); CO2, Blood 19.0 mmol/L (21-32); Calcium, Blood 10.6 mg/dL (8.5-10.1); Chloride, Blood 109.0 mmol/L (98-108); Creatinine, Blood 1.45 mg/dL (0.40-1.00); Glucose, Blood 140.0 mg/dL (70-99); Magnesium, Blood 1.9 mg/dL (1.6-2.4); Potassium, Blood 4.7 mmol/L (3.5-5.5); Sodium, Blood 136.0 mmol/L (136-145); Thyroid Stimulating Hormone 1.79 uIU/mL (0.360-4.800)
[2025-04-15 12:30] VITALS: BP 133/72
== END 2025-04-15 12:45 | disposition home or self-care (01) ==
LOC: ER 10:26
PROVIDERS: Emergency Medicine
DX: I47.10 Supraventricular tachycardia, unspecified (principal); Z87.891 Personal history of nicotine dependence
CPT/HCPCS: 80048; 83735; 84439; 84443; 84484; 85025; 93005; 93010; 93242; 96361; 96374; 96375; 99284-25; J0153; J7030